=== PATIENT | male | born 1975 ===

== ENCOUNTER 2020-02-08 13:09 | Inpatient (IN) | payer SELFPAY ==
[~2020-02-08] VITALS: Ht 165 cm; Wt 117.0 kg
[2020-02-08] VITALS (10 sets, daily range): BP systolic 104–164; BP diastolic 56–109
--- NOTE | 2020-02-08 13:12 | NUR ---
Patient placed on oxygen at 2 LPM via Nasal cannula. oxygen saturation level rises from 88% to 94%. Patient's respiratory rate is 30.
[2020-02-08] MEDS ORDERED: KETOROLAC 30 MG/ML VIAL IVP STA (13:31)
[2020-02-08] MEDS ORDERED: LACTATED RINGERS 1,000 ML IV STA (13:31)
[2020-02-08] MEDS ORDERED: FAMOTIDINE 20MG/2ML IV (PEPCID) IV STA (13:31)
[2020-02-08] MEDS ORDERED: ACETAMINOPHEN 500 MG TAB (TYLENOL) PO PRN ×2 (13:45→15:45)
[2020-02-08] MEDS ORDERED: ONDANSETRON 4 MG/2 ML (SDV) Z0FRAN IVP ONE (13:45)
[2020-02-08 13:49] LABS: BILIRUBIN,URINE NEGATIVE (NEGATIVE); CLARITY,URINE SL CLOUDY; COLOR,URINE YELLOW; GLUCOSE, URINE (UA) NEGATIVE (NEGATIVE); KETONES,URINE NEGATIVE (NEGATIVE); LEUKOCYTE ESTERASE ,URINE NEGATIVE (NEGATIVE); NITRITE,URINE NEGATIVE (NEGATIVE); PH,URINE 7.5 (5-9); PROTEIN,URINE 1+ (NEGATIVE)
[2020-02-08] MEDS ORDERED: DEXAMETHASONE 4 MG TAB (DECADRON) PO STA (13:49)
--- NOTE | 2020-02-08 13:49 | ED General ---
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 His was just seen here and she is known COVID positive since 31 January. He has not had COVID-19 testing. He had gone to the clinic today to get tested because his is sick and they sent him here. There he was noted to have O2 saturations in the 80s. Patient did not know that that was occurring. He believes that his asthma is activated. Aside from the breathing problems and cough, patient reports fever and mild aching stomach. Denies nausea, vomiting or diarrhea. States he is eating and drinking okay. He lives and works in [facility]. Further discussion with the patient reveals that he was actually sent home from work on 31 January (the same day that his was diagnosed as positive for COVID- 19) and told not to return until he was better. It would appear that he has not felt well for at least a week. Timing/Duration: 1 Hour, 1 Week Severity: Moderate Associated Systoms: Cough, Fever/Chills, Malaise; No Nausea/Vomiting; Shortness of Air Allergies and Home Medications Allergies Coded Allergies: No Known Drug Allergies (Unverified , 02/08/20) Patient Home Medication List Home Medication List Reviewed: Yes Review of Systems Review of Systems Constitutional: see HPI EENTM: nose congestion; No throat pain Respiratory: cough, short of breath Cardiovascular: No chest pain, No edema Gastrointestinal: abdominal pain; No diarrhea; nausea; No vomiting Genitourinary: no symptoms reported Musculoskeletal: No back pain, No neck pain Skin: no symptoms reported All Other Systems Reviewed Negative Unless Noted: Yes Past Njurhac-Ssclnf-Uvfppw Hx Past Med/Social Hx: Reviewed Nursing Past Med/Soc Hx Patient Social History Alcohol Use: Denies Use Recreational Drug Use: No Smoking Status: Never a Smoker Past Medical History Surgeries: Yes Orthopedic Respiratory: Yes Asthma Cardiac: Yes High Cholesterol, Hypertension Neurological: No Genitourinary: No Musculoskeletal: Yes Gout Endocrine: No Psychosocial: No Family Medical History Reviewed Nursing Family Hx No Pertinent Family Hx Physical Exam-Suspected Sepsis Physical Exam Vital Signs Vital Signs - First Documented 02/08/20 16:07 FiO2 28 Capillary Refill : Height, Weight, BMI Height: '" Weight: lbs. oz. kg; BMI Method: General Appearance: No Apparent Distress, WD/WN HEENT: PERRL/EOMI, Pharyngeal Erythema Neck: Non Tender, Supple Respiratory: No Respiratory Distress, Crackles (Lateral aspect bilaterally); No Wheezing Cardiovascular: Regular Rate, Rhythm, No Murmur Gastrointestinal: Non Tender, Soft Back: Normal Inspection, No Vertebral Tenderness Extremity: Normal Range of Motion, Non Tender Neurologic/Psychiatric: Alert, Oriented x3 Skin: normal color, warm/dry Focused Exam Lactate Level 02/08/20 13:48: Lactic Acid Level 1.95 Lactic Acid Level Laboratory Tests Test 02/08/20 13:48 Lactic Acid Level 1.95 MMOL/L (0.50-2.00) Progress/Results/Core Measures Suspected Sepsis SIRS Temperature: Pulse: Respiratory Rate: Laboratory Tests 02/08/20 13:20: White Blood Count 9.8 Blood Pressure / Mean: 02/08/20 13:48: Lactic Acid Level 1.95 Laboratory Tests 02/08/20 13:20: Creatinine 0.76, INR Comment 1.0, Platelet Count 331, Total Bilirubin 0.3 Results/Orders Lab Results Laboratory Tests Test 02/08/20 13:15 02/08/20 13:20 02/08/20 13:48 Range/Units Urine Color YELLOW Urine Clarity SL CLOUDY Urine pH 7.5 5-9 Urine Specific [place] 1.015 L 1.016-1.022 Urine Protein 1+ H NEGATIVE Urine Glucose (UA) NEGATIVE NEGATIVE Urine Ketones NEGATIVE NEGATIVE Urine Nitrite NEGATIVE NEGATIVE Urine Bilirubin NEGATIVE NEGATIVE Urine Urobilinogen 1.0 < = 1.0 MG/DL Urine Leukocyte Esterase NEGATIVE NEGATIVE Urine RBC (Auto) TRACE-L NEGATIVE Urine RBC 2-5 H /HPF Urine WBC NONE /HPF Urine Squamous Epithelial Cells RARE /HPF Urine Crystals NONE /LPF Urine Bacteria NEGATIVE /HPF Urine Casts NONE /LPF Urine Mucus SMALL H /LPF Urine Culture Indicated CULTURE PENDING White Blood Count 9.8 4.3-11.0 10^3/uL Red Blood Count 4.98 4.35-5.85 10^6/uL Hemoglobin 13.9 13.3-17.7 G/DL Hematocrit 42 40-54 % Mean Corpuscular Volume 84 80-99 FL Mean Corpuscular Hemoglobin 28 25-34 PG Mean Corpuscular Hemoglobin Concent 33 32-36 G/DL Red Cell Distribution Width 14.6 H 10.0-14.5 % Platelet Count 331 130-400 10^3/uL Mean Platelet Volume 9.3 7.4-10.4 FL Neutrophils (%) (Auto) 84 H 42-75 % Lymphocytes (%) (Auto) 9 L 12-44 % Monocytes (%) (Auto) 7 0-12 % Eosinophils (%) (Auto) 0 0-10 % Basophils (%) (Auto) 0 0-10 % Neutrophils # (Auto) 8.2 H 1.8-7.8 X 10^3 Lymphocytes # (Auto) 0.9 L 1.0-4.0 X 10^3 Monocytes # (Auto) 0.6 0.0-1.0 X 10^3 Eosinophils # (Auto) 0.0 0.0-0.3 10^3/uL Basophils # (Auto) 0.0 0.0-0.1 10^3/uL Erythrocyte Sedimentation Rate 14 0-15 MM/HR Prothrombin Time 13.1 12.2-14.7 SEC INR Comment 1.0 0.8-1.4 Activated Partial Thromboplast Time 39 H 24-35 SEC D-Dimer 1.19 H 0.00-0.49 UG/ML Sodium Level 138 135-145 MMOL/L Potassium Level 3.7 3.6-5.0 MMOL/L Chloride Level 101 98-107 MMOL/L Carbon Dioxide Level 23 21-32 MMOL/L Anion Gap 14 5-14 MMOL/L Blood Urea Nitrogen 11 7-18 MG/DL Creatinine 0.76 0.60-1.30 MG/DL Estimat Glomerular Filtration Rate > 60 BUN/Creatinine Ratio 14 Glucose Level 129 H 70-105 MG/DL Calcium Level 8.5 8.5-10.1 MG/DL Corrected Calcium 8.8 8.5-10.1 MG/DL Total Bilirubin 0.3 0.1-1.0 MG/DL Aspartate Amino Transf (AST/SGOT) 42 H 5-34 U/L Alanine Aminotransferase (ALT/SGPT) 28 0-55 U/L Alkaline Phosphatase 98 40-136 U/L Lactate Dehydrogenase 600 H 125-220 U/L C-Reactive Protein High Sensitivity 21.22 H 0.00-0.50 MG/DL Total Protein 7.5 6.4-8.2 GM/DL Albumin 3.6 3.2-4.5 GM/DL Procalcitonin 0.06 <0.10 NG/ML Lactic Acid Level 1.95 0.50-2.00 MMOL/L My Orders Orders - WOJCIECH SMITH MD Cbc With Automated Diff (02/08/20 13:31) Comprehensive Metabolic Panel (02/08/20 13:31) Blood Culture (02/08/20 13:31) Sputum Culture (02/08/20 13:31) Urinalysis (02/08/20 13:31) Urine Culture (02/08/20 13:31) Protime With Inr (02/08/20 13:31) Partial Thromboplastin Time (02/08/20 13:31) Chest 1 View, Ap/Pa Only (02/08/20 13:31) Acetaminophen Tablet (Tylenol Tablet) (02/08/20 13:45) Ed Iv/Invasive Line Start (02/08/20 13:31) Vital Signs Adult Sepsis Patie Q15M (02/08/20 13:31) O2 (02/08/20 13:31) Remove Rings In Anticipation O (02/08/20 13:31) Lactic Acid Analyzer (02/08/20 13:31) Fibrin Degradation Products (02/08/20 13:31) Procalcitonin (Pct) (02/08/20 13:31) Hs C Reactive Protein (02/08/20 13:31) Erythrocyte Sedimentation Rate (02/08/20 13:31) LDH (02/08/20 13:31) Coronavirus Sars-Cov-2 So 2018 (02/08/20 13:31) Lactated Ringers (Lr 1000 Ml Iv Solution (02/08/20 13:31) Famotidine Injection (Pepcid Injection) (02/08/20 13:31) Ondansetron Injection (Zofran Injectio (02/08/20 13:45) Ketorolac Injection (Toradol Injection) (02/08/20 13:31) Dexamethasone Tablet (Decadron Tablet) (02/08/20 13:49) Medications Given in ED Current Medications Medications Dose Ordered Sig/Len Route Start Time Stop Time Status Last Admin Dose Admin Acetaminophen 1,000 mg ONCE PRN PO 02/08/20 13:45 02/08/20 13:59 DC 02/08/20 13:45 1,000 MG Ondansetron HCl 4 mg ONCE ONCE IVP 02/08/20 13:45 02/08/20 13:46 DC 02/08/20 13:50 4 MG Vital Signs/I&O 02/08/20 02/08/20 02/08/20 02/08/20 13:12 13:12 13:12 13:45 Temp 38.9 38.9 Pulse 118 Resp 30 B/P (MAP) 159/93 (115) Pulse Ox 88 94 O2 Delivery Nasal Cannula Room Air Nasal Cannula O2 Flow Rate 2.00 3.00 02/08/20 02/08/20 02/08/20 02/08/20 15:08 15:58 16:07 16:15 Temp 37.4 38.9 Pulse 107 97 118 98 Resp 30 31 B/P (MAP) 164/100 (121) 149/79 134/99 (111) Pulse Ox 93 96 88 92 O2 Delivery Nasal Cannula Nasal Cannula Nasal Cannula O2 Flow Rate 2.00 3.00 2.00 FiO2 28 02/08/20 02/08/20 02/08/20 16:18 16:54 17:00 Pulse 98 97 Resp 16 B/P (MAP) 151/103 (119) Pulse Ox 92 O2 Delivery Nasal Cannula Nasal Cannula O2 Flow Rate 3.00 2.00 Capillary Refill : Progress Note : Progress Note Seen and evaluated. IV, labs, chest x-ray, blood cultures, lactic acid, COVID-19 swab, LR 1 L bolus, Tylenol 1 g by mouth for fever, Zofran 4 mg IV and Pepcid 20 mg IV for stomach upset ordered. I do believe the patient will be positive for COVID-19 given his presenting symptoms and history. We will also give Decadron 6 mg by mouth given the concern for acute phase of COVID infection with respiratory distress. Patient initially in the 80s on room air and up to 93% on 3 O2 L via nasal cannula. Evaluation and history done with bilingual speech language pathologist on phone. [id number]: Findings consistent with COVID-19 infections. We will treat as such. I discussed the case with Dr. Rodríguez. Given the severity of the x-ray, patient will be admitted to the ICU. She accepts patient for admission, inpatient status. I did discuss with the patient regarding remdesivir treatment for emergent treatment of COVID-19. Risks and benefits discussed via the dry cell tester and patient verbally consents to treatment with the antiviral agent. Patient is still mildly dyspneic with O2 sats greater than 92% on 4 L. Patient to be transferred to the ICU. Diagnostic Imaging Diagonstic Imaging: Xray Plain Films/CT/US/NM/MRI: chest Comments Bilateral patchy infiltrates concerning for COVID-19 [facility]. [place], [place] NAME: KELLI ESPAÑA [facility] REC#: [id number] PT STATUS: REG ER : 1975 PHYSICIAN: WOJCIECH SMITH MD ADMIT DATE: 02/08/20/ER Draft Date of Exam:02/08/20 CHEST 1 VIEW, AP/PA ONLY INDICATION: COVID symptoms. TIME OF EXAM: 02:52 p.m. COMPARISON: No prior studies are available for comparison. FINDINGS: The heart size appears increased, however this could be owing to portable technique. There are airspace infiltrates throughout both lungs consistent with pneumonia. This is noted in the upper and lower lung joy. No effusion or pneumothorax is seen. IMPRESSION: Diffuse bilateral airspace pulmonary infiltrates consistent with pneumonia. Dictated on workstation # [id number] Dict: 02/08/20 1505 Trans: 02/08/20 1508 [facility] [id number] Interpreted by: IVELISSE WHITESIDE MD Electronically signed by: Reviewed: Reviewed by Me Departure Communication (Admissions) Time/Spoke to Admitting Phy: 14:59 Impression Primary Impression: Bilateral pneumonia Qualified Codes: J18.9 - Pneumonia, unspecified organism Additional Impression: COVID-19 evaluation Disposition: ADMITTED INPATIENT Condition: Critical Admissions Decision to Admit Reason: Admit from ER (General) Decision to Admit/Date: Feb 08, 2020 Time/Decision to Admit Time: 14:59 WOJCIECH SMITH MD Feb 08, 2020 13:48
[2020-02-08 13:52] LABS: BASOPHILS % (AUTO) 0 % (0-10); EOSINOPHILS % (AUTO) 0 % (0-10); HEMATOCRIT 42 % (40-54); HEMOGLOBIN 13.9 G/DL (13.3-17.7); LYMPHOCYTES # (AUTO) 0.9 X 10^3 (1.0-4.0); LYMPHOCYTES % (AUTO) 9 % (12-44); MEAN CORPUSCULAR HEMOGLOBIN 28 PG (25-34); MEAN CORPUSCULAR HGB CONC 33 G/DL (32-36); MEAN CORPUSCULAR VOLUME 84 FL (80-99); MEAN PLATELET VOLUME 9.3 FL (7.4-10.4); MONOCYTES # (AUTO) 0.6 X 10^3 (0.0-1.0); MONOCYTES % (AUTO) 7 % (0-12); NEUTROPHILS # (AUTO) 8.2 X 10^3 (1.8-7.8); NEUTROPHILS % (AUTO) 84 % (42-75); PLATELET COUNT 331 10^3/uL (130-400); RED CELL DISTRIBUTION WIDTH 14.6 % (10.0-14.5); WHITE BLOOD COUNT 9.8 10^3/uL (4.3-11.0)
[2020-02-08 14:03] LABS: BACTERIA,URINE NEGATIVE /HPF; SQUAMOUS EPITHELIAL CELL,UR RARE /HPF
[2020-02-08 14:04] LABS: ALBUMIN 3.6 GM/DL (3.2-4.5); CHLORIDE 101 MMOL/L (98-107); POTASSIUM 3.7 MMOL/L (3.6-5.0); SODIUM 138 MMOL/L (135-145)
[2020-02-08 14:05] LABS: CALCIUM 8.5 MG/DL (8.5-10.1)
[2020-02-08 14:06] LABS: GLUCOSE 129 MG/DL (70-105); TOTAL PROTEIN 7.5 GM/DL (6.4-8.2)
[2020-02-08 14:08] LABS: BILIRUBIN,TOTAL 0.3 MG/DL (0.1-1.0); CARBON DIOXIDE 23 MMOL/L (21-32)
[2020-02-08 14:10] LABS: ALKALINE PHOSPHATASE 98 U/L (40-136); CREATININE SERUM 0.76 MG/DL (0.60-1.30); GFR ESTIMATED > 60
[2020-02-08 14:11] LABS: BUN/CREATININE RATIO 14
[2020-02-08 14:13] LABS: ALANINE AMINOTRANSFERASE 28 U/L (0-55)
[2020-02-08 14:16] LABS: ERYTHROCYTE SEDIMENTATION RATE 14 MM/HR (0-15)
[2020-02-08 14:47] LABS: FIBRIN DEGRADATION PRODUCTS 1.19 UG/ML (0.00-0.49); PROTHROMBIN TIME PATIENT 13.1 SEC (12.2-14.7)
--- NOTE | 2020-02-08 15:08 | Diagnostic Imaging Report ---
INDICATION: COVID symptoms. TIME OF EXAM: 02:52 p.m. COMPARISON: No prior studies are available for comparison. FINDINGS: The heart size appears increased, however this could be owing to portable technique. There are airspace infiltrates throughout both lungs consistent with pneumonia. This is noted in the upper and lower lung joy. No effusion or pneumothorax is seen. IMPRESSION: Diffuse bilateral airspace pulmonary infiltrates consistent with pneumonia. Dictated by: Dictated on workstation # [id number]
[2020-02-08] MEDS ORDERED: ENOXAPARIN 40 MG/0.4 ML (LOVENOX) SYR SC SCH (15:30)
[2020-02-08] MEDS ORDERED: REMDESIVIR INJ (NON-FORMULARY) 200 MG in NS (IVPB) 210 ML IV NR (15:30)
[2020-02-08] MEDS ORDERED: CATHETER FLUSH 10 ML SYR IV PRN (15:45)
[2020-02-08] MEDS ORDERED: ONDANSETRON 4 MG/2 ML (SDV) Z0FRAN IV PRN (15:45)
--- NOTE | 2020-02-08 17:07 | NUR ---
THIS NURSE NOTIFIED DR ADAM PT FLAGGED SEPSIS DUE TO RR 26-30 AND HR 100. NO NEW ORDERS AT THIS TIME. WILL CONTINUE TO MONITOR.
--- OUTSIDE RECORDS SUMMARY | 2020-02-08 17:49 | XMS REPORT | Continuity of Care Document ---
Demographics Preferred Language Unknown Marital Status Unknown Rastafarian Affiliation Unknown Race Unknown Ethnic Group Unknown Author Organization Unknown Address Unknown Phone Unavailable Allergies There is no data. Medications There is no data. Problems There is no data. Procedures There is no data. Results Test Result Range Complete urinalysis with reflex to cultu re - 02/08/20 13:15 Urine color determination YELLOW NRG Urine clarity determination SL CLOUDY N RG Urine pH measurement by test strip 7.5 5-9 Specific gravity of urine by test strip 1.015 1.016-1.022 Urine protein assay by test strip, semi-quantitative 1+ NEGATIVE Urine glucose detection by automated test strip NE GATIVE NEGATIVE Erythrocytes detection in urine sediment by light micr oscopy TRACE-L NEGATIVE Urine ketones detection by automated test strip NE GATIVE NEGATIVE Urine nitrite detection by test strip NEGATIVE NEGATIVE Urine total bilirubin detection by test strip NEGA TIVE NEGATIVE Urine urobilinogen measurement by automated test strip (mass/volume) 1.0 mg/dL < = 1.0 Urine leukocyte esterase detection by dipstick NEG ATIVE NEGATIVE Automated urine sediment erythrocyte cou nt by microscopy (number/high power field) [HPF] NRG Automated urine sediment leukocyte count by microscopy (number/high power field) NONE NRG Bacteria detection in urine sediment by light microsco py NEGATIVE NRG Squamous epithelial cells detection in u rine sediment by light microscopy RARE NRG Crystals detection in urine sediment by light microsco py NONE NRG Casts detection in urine sediment by light microscopy NONE NRG Mucus detection in urine sediment by light microscopy SMALL NRG Complete urinalysis with reflex to culture CULTURE PENDING NRG Complete blood count (CBC) with automate d white blood cell (WBC) differential - 02/08/20 13:20 Blood leukocytes automated count (number/volume) 9.8 10*3/uL 4.3-11.0 Blood erythrocytes automated count (number/volume) 4.98 10*6/uL 4.35-5.85 Venous blood hemoglobin measurement (mass/volume) 13.9 g/dL 13.3-17.7 Blood hematocrit (volume fraction) 42 % 40-54 Automated erythrocyte mean corpuscular volume 84 [ foz_us] 80-99 Automated erythrocyte mean corpuscular h emoglobin (mass per erythrocyte) 28 pg 25-34 Automated erythrocyte mean corpuscular h emoglobin concentration measurement (mass/volume) 33 g/dL 32-36 Automated erythrocyte distribution width ratio 14. 6 % 10.0- 14.5 Automated blood platelet count (count/volume) 331 10*3/uL 130-400 Automated blood platelet mean volume measurement 9.3 [foz_us] 7.4-10.4 Automated blood neutrophils/100 leukocytes 84 % 42-75 Automated blood lymphocytes/100 leukocytes 9 % 12-44 Blood monocytes/100 leukocytes 7 % 0-12 Automated blood eosinophils/100 leukocytes 0 % 0-10 Automated blood basophils/100 leukocytes 0 % 0-10 Blood neutrophils automated count (number/volume) 8.2 10*3 1.8-7.8 Blood lymphocytes automated count (number/volume) 0.9 10*3 1.0-4.0 Blood monocytes automated count (number/volume) 0. 6 10*3 0.0-1.0 Automated eosinophil count 0.0 10*3/uL 0 .0-0.3 Automated blood basophil count (count/volume) 0.0 10*3/uL 0.0-0.1 Comprehensive metabolic panel - 02/08/20 13:20 Serum or plasma sodium measurement (moles/volume) 138 mmol/L 135-145 Serum or plasma potassium measurement (moles/volume) 3.7 mmol/L 3.6-5.0 Serum or plasma chloride measurement (moles/volume) 101 mmol/L 98-107 Carbon dioxide 23 mmol/L 21-32 Serum or plasma anion gap determination (moles/volume) 14 mmol/L 5-14 Serum or plasma urea nitrogen measurement (mass/volume ) 11 mg/dL 7-18 Serum or plasma creatinine measurement (mass/volume) 0.76 mg/dL 0.60-1.30 Serum or plasma urea nitrogen/creatinine mass ratio 14 NRG Serum or plasma creatinine measurement w ith calculation of estimated glomerular filtration rate > NRG Serum or plasma glucose measurement (mass/volume) 129 mg/dL 70-105 Serum or plasma calcium measurement (mass/volume) 8.5 mg/dL 8.5-10.1 Serum or plasma total bilirubin measurement (mass/volu me) 0.3 mg/dL 0.1-1.0 Serum or plasma alkaline phosphatase juan surement (enzymatic activity/volume) 98 U/L 40-136 Serum or plasma aspartate aminotransfera se measurement (enzymatic activity/volume) 42 U/L 5-34 Serum or plasma alanine aminotransferase measurement (enzymatic activity/volume) 28 U/L 0-55 Serum or plasma protein measurement (mass/volume) 7.5 g/dL 6.4-8.2 Serum or plasma albumin measurement (mass/volume) 3.6 g/dL 3.2-4.5 CALCIUM CORRECTED 8.8 mg/dL 8.5-10.1 Serum ragweed IgE antibody assay - 02/07 13:20 Serum ragweed IgE antibody assay 600 U/L 125-220 Erythrocyte sedimentation rate by miguel a gren method - 02/08/20 13:20 Erythrocyte sedimentation rate by westergren method 14 mm 0- 15 PROCALCITONIN (PCT) - 02/08/20 13:20 PROCALCITONIN (PCT) 0.06 ng/mL <0.10 Serum or plasma C reactive protein measu rement (mass/volume) - 02/08/20 13:20 Serum or plasma C reactive protein measurement (mass/v olume) 21.22 mg/dL 0.00-0.50 PT panel in platelet poor plasma by coag ulation assay - 02/08/20 13:20 Prothrombin time (PT) in platelet poor plasma by coagu lation assay 13.1 s 12.2-14.7 INR in platelet poor plasma or blood by coagulation as say 1.0 0.8-1.4 Activated partial thromboplastin time (a PTT) in platelet poor plasma bycoagulation assay - 02/08/20 13:20 Activated partial thromboplastin time (a PTT) in platelet poor plasma bycoagulation assay 39 s 24-35 Fibrin D-dimer FEU measurement in platel et poor plasma (mass/volume) - 02/08/20 13:20 Fibrin D-dimer FEU measurement in platelet poor plasma (mass/volume) 1.19 ug/mL 0.00-0.49 Blood lactic acid measurement (moles/vol ume) - 02/08/20 13:48 Blood lactic acid measurement (moles/volume) 1.95 mmol/L 0.50-2.00 Encounters ACCT No. Visit Date/Time Discharge Status Pt. Type Provider Facility Loc./Unit Complaint [id number] 02/08/2020 13:54:00 Document Registration
[2020-02-08] MEDS: RT-ALBUTEROL INHALER HFA (VENTOLIN HFA) 18 GM IH SCH ×2 (18:59→22:38)
[2020-02-08] MEDS: ENOXAPARIN 40 MG/0.4 ML (LOVENOX) SYR SC SCH (19:21)
[2020-02-08] MEDS: DEXAMETHASONE 10 MG/ML (DECADRON) 1 ML VIAL IM SCH (19:38)
[2020-02-08] MEDS: CATHETER FLUSH 10 ML SYR IV SCH (21:09)
[2020-02-09] VITALS (24 sets, daily range): BP systolic 131–163; BP diastolic 60–103
[2020-02-09 01:09] LABS: BASOPHILS % (AUTO) 0 % (0-10); EOSINOPHILS % (AUTO) 0 % (0-10); HEMATOCRIT 39 % (40-54); HEMOGLOBIN 13.5 G/DL (13.3-17.7); LYMPHOCYTES # (AUTO) 0.6 X 10^3 (1.0-4.0); LYMPHOCYTES % (AUTO) 6 % (12-44); MEAN CORPUSCULAR HEMOGLOBIN 28 PG (25-34); MEAN CORPUSCULAR HGB CONC 34 G/DL (32-36); MEAN CORPUSCULAR VOLUME 83 FL (80-99); MEAN PLATELET VOLUME 9.2 FL (7.4-10.4); MONOCYTES # (AUTO) 0.3 X 10^3 (0.0-1.0); MONOCYTES % (AUTO) 4 % (0-12); NEUTROPHILS % (AUTO) 90 % (42-75); PLATELET COUNT 353 10^3/uL (130-400); RED CELL DISTRIBUTION WIDTH 14.6 % (10.0-14.5); WHITE BLOOD COUNT 8.9 10^3/uL (4.3-11.0)
[2020-02-09] MEDS: RT-ALBUTEROL INHALER HFA (VENTOLIN HFA) 18 GM IH SCH ×6 (01:10→23:06)
[2020-02-09 01:14] LABS: CHLORIDE 103 MMOL/L (98-107); POTASSIUM 3.6 MMOL/L (3.6-5.0); SODIUM 138 MMOL/L (135-145)
[2020-02-09 01:15] LABS: CALCIUM 8.3 MG/DL (8.5-10.1); GLUCOSE 159 MG/DL (70-105)
[2020-02-09 01:17] LABS: CARBON DIOXIDE 23 MMOL/L (21-32)
[2020-02-09 01:19] LABS: CREATININE SERUM 0.75 MG/DL (0.60-1.30); GFR ESTIMATED > 60; PHOSPHORUS 3.2 MG/DL (2.3-4.7)
[2020-02-09 01:20] LABS: BUN/CREATININE RATIO 20
[2020-02-09] MEDS: KCL 20 MEQ TAB (K-DUR) PO SCH (01:21)
[2020-02-09] MEDS: POTASSIUM CL 10MEQ/50ML IVPB 50 ML IV SCH (01:21)
[2020-02-09 01:22] LABS: MAGNESIUM 1.8 MG/DL (1.6-2.4)
[2020-02-09] MEDS: MAGNESIUM 1 GM/100 ML IVPB 100 ML IV SCH (01:23)
[2020-02-09] MEDS: ENOXAPARIN 40 MG/0.4 ML (LOVENOX) SYR SC SCH ×2 (03:31→16:37)
[2020-02-09] MEDS: CATHETER FLUSH 10 ML SYR IV SCH ×3 (04:42→21:52)
[2020-02-09] MEDS: DEXAMETHASONE 10 MG/ML (DECADRON) 1 ML VIAL IM SCH (08:12)
[2020-02-09] MEDS ORDERED: KCL 20 MEQ TAB (K-DUR) PO ONE ×2 (09:00→16:45)
--- NOTE | 2020-02-09 10:58 | History & Physical-Hospitalist ---
History of Present Illness HPI/Chief Complaint Pt is a 44yoCM with a PMH of asthma, HTN, HLD who presented to the ER due to shortness of breath and hypoxia. He was seen at [facility] clinic yesterday for SOB and was found to have oxygen saturation of 85% on room air and was referred to the ER. He reports that his symptoms started on 01/31 and he was sent home for work for this. His was diagnosed with COVID19 on the same day. He was found to have diffuse bilateral pneumonia and new oxygen requirement and was admitted to the ICU for hypoxic respiratory failure. This morning reports he is feeling much better but he did escalate to Vapotherm overnight. He denies any cough or SOB at this time. Source: patient Exam Limitations: language barrier (language line used) Date Seen 02/09/20 Time Seen by a Provider: 10:53 Attending Physician Crystal Rodríguez MD PCP No,Local Physician Referring Physician Date of Admission Feb 08, 2020 at 14:01 Home Medications & Allergies Home Medications Reviewed patient Home Medication Reconciliation performed by pharmacy medication reconciliations semiconductor technician and/or nursing. Patients Allergies have been reviewed. Allergies Allergies Coded Allergies No Known Drug Allergies (Unverified02/08/20) Past Vwkxgam-Ibekyr-Qtwuul Hx Past Med/Social Hx: Reviewed Nursing Past Med/Soc Hx Patient Social History Marrital Status: Alcohol Use: Denies Use Recreational Drug Use: No Smoking Status: Never a Smoker 2nd Hand Smoke Exposure: No Recent Foreign Travel: No Contact w/other who traveled: No Recent Hopitalizations: No Recent Infectious Disease Expo: Yes Seasonal Allergies Seasonal Allergies: No Past Medical History Surgeries: Orthopedic Cardiac: High Cholesterol, Hypertension Musculoskeletal: Gout Family History Reviewed Nursing Family Hx No Pertinent Family Hx Review of Systems Constitutional: fever EENTM: no symptoms reported Respiratory: cough, short of breath Cardiovascular: No chest pain, No palpitations Gastrointestinal: no symptoms reported Genitourinary: no symptoms reported Musculoskeletal: no symptoms reported Skin: no symptoms reported Psychiatric/Neurological: No Symptoms Reported Physical Exam Physical Exam Vital Signs Vital Signs - First Documented 02/08/20 16:07 FiO2 28 Capillary Refill : Less Than 3 Seconds Height, Weight, BMI Height: '" Weight: lbs. oz. kg; 41.00 BMI Method: General Appearance: No Apparent Distress, WD/WN, Obese HEENT: PERRL/EOMI, Moist Mucous Membranes; No Scleral Icterus (L), No Scleral Icterus (R) Neck: Normal Inspection, Supple Respiratory: No Accessory Muscle Use, Decreased Breath Sounds, Other (on Vapotherm) Cardiovascular: Regular Rate, Rhythm, No Murmur Gastrointestinal: Normal Bowel Sounds, Non Tender, Soft Neurologic/Psychiatric: Alert, Oriented x3, Normal Mood/Affect Results Results/Procedures Labs Laboratory Tests 02/08/20 13:20 02/09/20 00:52 Patient resulted labs reviewed. Imaging: Reviewed Imaging Films, Reviewed Imaging Report Imaging [facility]. [place], [place] NAME: KELLI ESPAÑA [facility] REC#: [id number] PT STATUS: ADM IN : 1975 PHYSICIAN: WOJCIECH SMITH MD ADMIT DATE: 02/08/20/ICU Signed Date of Exam:02/08/20 CHEST 1 VIEW, AP/PA ONLY INDICATION: COVID symptoms. TIME OF EXAM: 02:52 p.m. COMPARISON: No prior studies are available for comparison. FINDINGS: The heart size appears increased, however this could be owing to portable technique. There are airspace infiltrates throughout both lungs consistent with pneumonia. This is noted in the upper and lower lung joy. No effusion or pneumothorax is seen. IMPRESSION: Diffuse bilateral airspace pulmonary infiltrates consistent with pneumonia. Dictated by: Dictated on workstation # [id number] Dict: 02/08/20 1505 Trans: 02/08/20 1533 [facility] [id number] Interpreted by: IVELISSE WHITESIDE MD Electronically signed by: IVELISSE WHITESIDE MD 02/08/20 1533 Assessment/Plan Admission Diagnosis Acute Hypoxic Respiratory Failure Admission Status: Inpatient Order (span 2 midnights) Reason for Inpatient Admission: see below Assessment and Plan Acute Hypoxic Respiratory Failure COVID19 Bilateral Viral Pneumonia COVID + Continue Decadron orally and Remdesivir TeleICU consulted, appreciate recs Vapotherm, wean oxygen as able Prone as able Hyperglycemia SSI Likely due to Decadron HTN BP mildly elevated, trend DVT ppx: Lovenox Diagnosis/Problems Diagnosis/Problems (1) Essential (primary) hypertension Status: Chronic (2) Hyperglycemia Status: Acute (3) Prophylactic measure Status: Acute (4) Acute respiratory failure Status: Acute Qualifiers: Respiratory failure complication: hypoxia Qualified Codes: J96.01 - Acute respiratory failure with hypoxia (5) Coronavirus infection Status: Acute (6) Bilateral pneumonia Status: Acute Qualifiers: Pneumonia type: due to unspecified organism Lung location: unspecified part of lung Qualified Codes: J18.9 - Pneumonia, unspecified organism (7) Pneumonia due to human coronavirus Status: Acute Clinical Quality Measures DVT/VTE Risk/Contraindication: Risk Factor Score Per Nursin RFS Level Per Nursing on Admit: 4+=Very High CRYSTAL RODRÍGUEZ MD Feb 09, 2020 10:58
[2020-02-09 12:27] LABS: ALANINE AMINOTRANSFERASE 34 U/L (0-55); ALBUMIN 3.3 GM/DL (3.2-4.5); ALKALINE PHOSPHATASE 91 U/L (40-136); BILIRUBIN,DIRECT 0.2 MG/DL (0.0-0.3); BILIRUBIN,INDIRECT 0.1 MG/DL; BILIRUBIN,TOTAL 0.3 MG/DL (0.1-1.0); BUN/CREATININE RATIO 22; CALCIUM 8.6 MG/DL (8.5-10.1); CARBON DIOXIDE 25 MMOL/L (21-32); CHLORIDE 104 MMOL/L (98-107); CREATININE SERUM 0.77 MG/DL (0.60-1.30); GFR ESTIMATED > 60; GLUCOSE 220 MG/DL (70-105); POTASSIUM 3.5 MMOL/L (3.6-5.0); SODIUM 139 MMOL/L (135-145); TOTAL PROTEIN 7.2 GM/DL (6.4-8.2)
[2020-02-09] MEDS ORDERED: ATOR10TA66 PO (15:54)
[2020-02-09] MEDS ORDERED: CYCL10TA9 PO (15:54)
[2020-02-09] MEDS ORDERED: LISI1TAB25 PO (15:54)
[2020-02-09] MEDS ORDERED: ASPI-789 PO (15:54)
--- NOTE | 2020-02-09 16:02 | NUR ---
SPOKE WITH THE PATIENTS DAUGHTER (RODRÍGUEZ) AND CALLED [facility] TO COM[facility]TE [facility] REC. LISINOPRIL/HCTZ 20/12.5MG WAS LAST FILLED ON 09-22-2019 #90 (THRU THE REPOSITORY) AND 08-14-2019 #90 (THRU [facility]) ATORVASTATIN 10MG LAST FILLED 10-14-2019 #90 (THRU THE PHARMACY) AND 09-22-2019 #90 (THRU THE REPOSITORY) FLEXERIL 10MG LAST FILLED 10-23-2019 #60 OTC MEDS: EXCEDRIN
[2020-02-09] MEDS: REMDESIVIR INJ (NON-FORMULARY) 100 MG in NS (IVPB) 230 ML IV SCH (16:34)
[2020-02-10] VITALS (24 sets, daily range): BP systolic 120–172; BP diastolic 62–108
[2020-02-10] MEDS: ENOXAPARIN 40 MG/0.4 ML (LOVENOX) SYR SC SCH ×2 (02:20→16:13)
[2020-02-10 02:42] LABS: BASOPHILS % (AUTO) 0 % (0-10); EOSINOPHILS % (AUTO) 0 % (0-10); HEMATOCRIT 40 % (40-54); HEMOGLOBIN 13.7 G/DL (13.3-17.7); LYMPHOCYTES % (AUTO) 5 % (12-44); MEAN CORPUSCULAR HEMOGLOBIN 29 PG (25-34); MEAN CORPUSCULAR HGB CONC 34 G/DL (32-36); MEAN CORPUSCULAR VOLUME 83 FL (80-99); MEAN PLATELET VOLUME 9.5 FL (7.4-10.4); MONOCYTES % (AUTO) 5 % (0-12); NEUTROPHILS % (AUTO) 89 % (42-75); PLATELET COUNT 432 10^3/uL (130-400); RED CELL DISTRIBUTION WIDTH 14.6 % (10.0-14.5)
[2020-02-10] MEDS: RT-ALBUTEROL INHALER HFA (VENTOLIN HFA) 18 GM IH SCH ×6 (02:46→22:00)
[2020-02-10 02:48] LABS: ALBUMIN 3.3 GM/DL (3.2-4.5); CHLORIDE 106 MMOL/L (98-107); POTASSIUM 4.2 MMOL/L (3.6-5.0); SODIUM 141 MMOL/L (135-145)
[2020-02-10 02:50] LABS: CALCIUM 8.6 MG/DL (8.5-10.1)
[2020-02-10 02:51] LABS: GLUCOSE 163 MG/DL (70-105); TOTAL PROTEIN 7.2 GM/DL (6.4-8.2)
[2020-02-10 02:52] LABS: CARBON DIOXIDE 24 MMOL/L (21-32)
[2020-02-10 02:53] LABS: BILIRUBIN,TOTAL 0.3 MG/DL (0.1-1.0)
[2020-02-10 02:54] LABS: ALKALINE PHOSPHATASE 95 U/L (40-136); PHOSPHORUS 3.7 MG/DL (2.3-4.7)
[2020-02-10 02:55] LABS: CREATININE SERUM 0.71 MG/DL (0.60-1.30); GFR ESTIMATED > 60
[2020-02-10 02:56] LABS: BUN/CREATININE RATIO 25
[2020-02-10 02:57] LABS: ALANINE AMINOTRANSFERASE 35 U/L (0-55); MAGNESIUM 2.1 MG/DL (1.6-2.4)
[2020-02-10] MEDS: POTASSIUM CL 10MEQ/50ML IVPB 50 ML IV SCH (03:05)
[2020-02-10] MEDS: KCL 20 MEQ TAB (K-DUR) PO SCH (03:05)
[2020-02-10] MEDS: MAGNESIUM 1 GM/100 ML IVPB 100 ML IV SCH (03:05)
[2020-02-10 03:55] LABS: NEUTROPHILS % (MANUAL) 84 %
[2020-02-10 03:56] LABS: BAND NEUTROPHILS 2 %; BASOPHILS % (MANUAL) 1 %; LYMPHOCYTES % (MANUAL) 6 %; METAMYELOCYTES % 1 %; MONOCYTES % (MANUAL) 6 %; RBC MORPH NORMAL
[2020-02-10] MEDS: CATHETER FLUSH 10 ML SYR IV SCH ×3 (05:42→23:33)
[2020-02-10] MEDS: lisINopril 20 MG (PRINIVIL) TABLET PO SCH (08:01)
[2020-02-10] MEDS: DEXAMETHASONE 10 MG/ML (DECADRON) 1 ML VIAL IM SCH (08:01)
[2020-02-10] MEDS: HYDROCHLOROTHIAZIDE 12.5 MG (HCTZ) CAP PO SCH (08:07)
--- NOTE | 2020-02-10 10:28 | Progress Note - Hospitalist ---
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 He was seen at [facility] clinic yesterday for SOB and was found to have oxygen saturation of 85% on room air and was referred to the ER. He reports that his symptoms started on 01/31 and he was sent home for work for this. His was diagnosed with COVID19 on the same day. He was found to have diffuse bilateral pneumonia and new oxygen requirement and was admitted to the ICU for hypoxic respiratory failure. This morning reports he is feeling much better but he did escalate to Vapotherm overnight. He denies any cough or SOB at this time. Subjective/Events-last exam Pt reports doing much better today. Breathing improved. Still on Vapotherm but feeling better. Focused Exam Lactate Level 02/08/20 13:48: Lactic Acid Level 1.95 Objective Exam Vital Signs Vital Signs Date Time Temp Pulse Resp B/P (MAP) Pulse Ox O2 Delivery O2 Flow Rate FiO2 02/10/20 08:04 36.2 02/10/20 08:00 Vapotherm 35.00 65 02/10/20 08:00 95 27 137/91 (106) 90 Capillary Refill : Less Than 3 Seconds General Appearance: No Apparent Distress, WD/WN Respiratory: Crackles (left base), Other (on Vapotherm) Cardiovascular: Regular Rate, Rhythm, No Murmur Gastrointestinal: Normal Bowel Sounds, Soft Neurologic/Psychiatric: Alert, Oriented x3 Results/Procedures Lab Laboratory Tests 02/09/20 11:50 02/10/20 02:15 Patient resulted labs reviewed. Imaging: Reviewed Imaging Films, Reviewed Imaging Report Assessment/Plan Assessment and Plan Assess & Plan/Chief Complaint Acute Hypoxic Respiratory Failure COVID19 Bilateral Viral Pneumonia COVID + Continue Decadron orally and Remdesivir TeleICU consulted, appreciate recs Vapotherm, wean oxygen to keep sats >90 Prone as able Hyperglycemia SSI Likely due to Decadron Leukocytosis Likely due to decadron Remains afebrile and clinically improving HTN BP mildly elevated, trend DVT ppx: Lovenox Diagnosis/Problems Diagnosis/Problems (1) Essential (primary) hypertension Status: Chronic (2) Hyperglycemia Status: Acute (3) Prophylactic measure Status: Acute (4) Acute respiratory failure Status: Acute Qualifiers: Respiratory failure complication: hypoxia Qualified Codes: J96.01 - Acute respiratory failure with hypoxia (5) Coronavirus infection Status: Acute (6) Bilateral pneumonia Status: Acute Qualifiers: Pneumonia type: due to unspecified organism Lung location: unspecified part of lung Qualified Codes: J18.9 - Pneumonia, unspecified organism (7) Pneumonia due to human coronavirus Status: Acute Clinical Quality Measures DVT/VTE Risk/Contraindication: Risk Factor Score Per Nursin RFS Level Per Nursing on Admit: 4+=Very High CRYSTAL ADAM MD Feb 10, 2020 10:28
[2020-02-10] MEDS: REMDESIVIR INJ (NON-FORMULARY) 100 MG in NS (IVPB) 230 ML IV SCH (16:14)
[2020-02-11] VITALS (23 sets, daily range): BP systolic 133–174; BP diastolic 80–119
[2020-02-11] MEDS: RT-ALBUTEROL INHALER HFA (VENTOLIN HFA) 18 GM IH SCH ×6 (02:18→22:09)
[2020-02-11] MEDS: ENOXAPARIN 40 MG/0.4 ML (LOVENOX) SYR SC SCH ×2 (02:42→15:58)
[2020-02-11 03:00] LABS: BASOPHILS % (AUTO) 0 % (0-10); EOSINOPHILS % (AUTO) 0 % (0-10); HEMATOCRIT 42 % (40-54); HEMOGLOBIN 13.9 G/DL (13.3-17.7); LYMPHOCYTES # (AUTO) 1.2 X 10^3 (1.0-4.0); LYMPHOCYTES % (AUTO) 5 % (12-44); MEAN CORPUSCULAR HEMOGLOBIN 28 PG (25-34); MEAN CORPUSCULAR HGB CONC 33 G/DL (32-36); MEAN CORPUSCULAR VOLUME 84 FL (80-99); MEAN PLATELET VOLUME 9.4 FL (7.4-10.4); MONOCYTES # (AUTO) 1.7 X 10^3 (0.0-1.0); MONOCYTES % (AUTO) 8 % (0-12); NEUTROPHILS # (AUTO) 19.3 X 10^3 (1.8-7.8); NEUTROPHILS % (AUTO) 87 % (42-75); PLATELET COUNT 457 10^3/uL (130-400); RED CELL DISTRIBUTION WIDTH 14.9 % (10.0-14.5); WHITE BLOOD COUNT 22.3 10^3/uL (4.3-11.0)
[2020-02-11 03:10] LABS: ALBUMIN 3.2 GM/DL (3.2-4.5); CHLORIDE 105 MMOL/L (98-107); POTASSIUM 4.1 MMOL/L (3.6-5.0); SODIUM 141 MMOL/L (135-145)
[2020-02-11 03:11] LABS: CALCIUM 8.3 MG/DL (8.5-10.1)
[2020-02-11 03:12] LABS: GLUCOSE 146 MG/DL (70-105)
[2020-02-11] MEDS: POTASSIUM CL 10MEQ/50ML IVPB 50 ML IV SCH (03:12)
[2020-02-11] MEDS: KCL 20 MEQ TAB (K-DUR) PO SCH (03:12)
[2020-02-11 03:13] LABS: TOTAL PROTEIN 6.8 GM/DL (6.4-8.2)
[2020-02-11 03:14] LABS: BILIRUBIN,TOTAL 0.4 MG/DL (0.1-1.0); CARBON DIOXIDE 23 MMOL/L (21-32)
[2020-02-11 03:16] LABS: ALKALINE PHOSPHATASE 94 U/L (40-136); GFR ESTIMATED > 60; PHOSPHORUS 3.7 MG/DL (2.3-4.7)
[2020-02-11 03:17] LABS: BUN/CREATININE RATIO 27
[2020-02-11 03:19] LABS: ALANINE AMINOTRANSFERASE 62 U/L (0-55)
[2020-02-11] MEDS: CATHETER FLUSH 10 ML SYR IV SCH ×3 (06:18→22:04)
[2020-02-11] MEDS: MAGNESIUM 1 GM/100 ML IVPB 100 ML IV SCH (06:18)
[2020-02-11] MEDS: HYDROCHLOROTHIAZIDE 12.5 MG (HCTZ) CAP PO SCH (09:10)
[2020-02-11] MEDS: DEXAMETHASONE 10 MG/ML (DECADRON) 1 ML VIAL IM SCH (09:10)
[2020-02-11] MEDS: lisINopril 20 MG (PRINIVIL) TABLET PO SCH (09:10)
--- NOTE | 2020-02-11 09:42 | Progress Note - Hospitalist ---
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 He was seen at [facility] clinic yesterday for SOB and was found to have oxygen saturation of 85% on room air and was referred to the ER. He reports that his symptoms started on 01/31 and he was sent home for work for this. His was diagnosed with COVID19 on the same day. He was found to have diffuse bilateral pneumonia and new oxygen requirement and was admitted to the ICU for hypoxic respiratory failure. This morning reports he is feeling much better but he did escalate to Vapotherm overnight. He denies any cough or SOB at this time. Subjective/Events-last exam Pt reports feeling better today. No new complaints. Breathing improving. Focused Exam Lactate Level 02/08/20 13:48: Lactic Acid Level 1.95 Objective Exam Vital Signs Vital Signs Date Time Temp Pulse Resp B/P (MAP) Pulse Ox O2 Delivery O2 Flow Rate FiO2 02/11/20 09:00 36.0 Vapotherm 35.00 55.00 02/11/20 07:54 96 60 02/11/20 07:00 129 27 147/108 (121) Capillary Refill : Less Than 3 Seconds General Appearance: No Apparent Distress, WD/WN Respiratory: No Respiratory Distress; No Crackles; Decreased Breath Sounds Cardiovascular: Regular Rate, Rhythm, No Murmur Neurologic/Psychiatric: Alert, Oriented x3 Results/Procedures Lab Laboratory Tests 02/11/20 02:43 Patient resulted labs reviewed. Imaging: Reviewed Imaging Films, Reviewed Imaging Report Assessment/Plan Assessment and Plan Assess & Plan/Chief Complaint Acute Hypoxic Respiratory Failure COVID19 Bilateral Viral Pneumonia COVID + Continue Decadron and Remdesivir Mild transaminitis, but still within range to continue Remdesivir TeleICU consulted, appreciate recs Vapotherm, wean oxygen to keep sats >90 Prone as able Hyperglycemia SSI Likely due to Decadron Leukocytosis ? due to decadron but continuing over multiple days Remains afebrile and clinically improving so will not start abx at this time Procal ordered HTN BP mildly elevated, trend DVT ppx: Lovenox Diagnosis/Problems Diagnosis/Problems (1) Acute respiratory failure Status: Acute Qualifiers: Respiratory failure complication: hypoxia Qualified Codes: J96.01 - Acute respiratory failure with hypoxia (2) Essential (primary) hypertension Status: Chronic (3) Hyperglycemia Status: Acute (4) Prophylactic measure Status: Acute (5) Coronavirus infection Status: Acute (6) Bilateral pneumonia Status: Acute Qualifiers: Pneumonia type: due to unspecified organism Lung location: unspecified part of lung Qualified Codes: J18.9 - Pneumonia, unspecified organism (7) Pneumonia due to human coronavirus Status: Acute Clinical Quality Measures DVT/VTE Risk/Contraindication: Risk Factor Score Per Nursin RFS Level Per Nursing on Admit: 4+=Very High CRYSTAL ADAM MD Feb 11, 2020 09:42
[2020-02-11] MEDS: REMDESIVIR INJ (NON-FORMULARY) 100 MG in NS (IVPB) 230 ML IV SCH (15:58)
[2020-02-12] VITALS (24 sets, daily range): BP systolic 120–171; BP diastolic 58–107
[2020-02-12] MEDS: RT-ALBUTEROL INHALER HFA (VENTOLIN HFA) 18 GM IH SCH ×6 (02:52→21:21)
[2020-02-12] MEDS: CATHETER FLUSH 10 ML SYR IV SCH ×3 (03:57→21:22)
[2020-02-12] MEDS: ENOXAPARIN 40 MG/0.4 ML (LOVENOX) SYR SC SCH ×2 (03:57→15:28)
[2020-02-12 04:12] LABS: BASOPHILS # (AUTO) 0.1 10^3/uL (0.0-0.1); BASOPHILS % (AUTO) 0 % (0-10); EOSINOPHILS % (AUTO) 0 % (0-10); HEMATOCRIT 42 % (40-54); HEMOGLOBIN 14.1 G/DL (13.3-17.7); LYMPHOCYTES # (AUTO) 1.4 X 10^3 (1.0-4.0); LYMPHOCYTES % (AUTO) 7 % (12-44); MEAN CORPUSCULAR HEMOGLOBIN 28 PG (25-34); MEAN CORPUSCULAR HGB CONC 34 G/DL (32-36); MEAN CORPUSCULAR VOLUME 84 FL (80-99); MEAN PLATELET VOLUME 9.5 FL (7.4-10.4); MONOCYTES # (AUTO) 1.9 X 10^3 (0.0-1.0); MONOCYTES % (AUTO) 9 % (0-12); NEUTROPHILS # (AUTO) 17.4 X 10^3 (1.8-7.8); NEUTROPHILS % (AUTO) 84 % (42-75); PLATELET COUNT 463 10^3/uL (130-400); RED CELL DISTRIBUTION WIDTH 14.6 % (10.0-14.5); WHITE BLOOD COUNT 20.8 10^3/uL (4.3-11.0)
[2020-02-12 04:56] LABS: ALBUMIN 3.3 GM/DL (3.2-4.5); CHLORIDE 104 MMOL/L (98-107); POTASSIUM 4.1 MMOL/L (3.6-5.0); SODIUM 139 MMOL/L (135-145)
[2020-02-12 04:57] LABS: CALCIUM 8.5 MG/DL (8.5-10.1)
[2020-02-12 04:59] LABS: GLUCOSE 185 MG/DL (70-105); TOTAL PROTEIN 6.9 GM/DL (6.4-8.2)
[2020-02-12 05:00] LABS: BILIRUBIN,TOTAL 0.4 MG/DL (0.1-1.0); CARBON DIOXIDE 22 MMOL/L (21-32)
[2020-02-12 05:02] LABS: ALKALINE PHOSPHATASE 94 U/L (40-136); CREATININE SERUM 0.74 MG/DL (0.60-1.30); GFR ESTIMATED > 60
[2020-02-12 05:03] LABS: BUN/CREATININE RATIO 27
[2020-02-12 05:05] LABS: ALANINE AMINOTRANSFERASE 85 U/L (0-55)
[2020-02-12 05:06] LABS: MAGNESIUM 2.1 MG/DL (1.6-2.4)
[2020-02-12] MEDS: POTASSIUM CL 10MEQ/50ML IVPB 50 ML IV SCH (05:06)
[2020-02-12] MEDS: KCL 20 MEQ TAB (K-DUR) PO SCH (05:06)
[2020-02-12] MEDS: MAGNESIUM 1 GM/100 ML IVPB 100 ML IV SCH (05:06)
--- NOTE | 2020-02-12 05:09 | Pulmonary Consultation ---
History of Present Illness History of Present Illness Date Seen by Provider: Feb 12, 2020 Time Seen by Provider: 05:04 Date of Admission Allergies and Home Medications Allergies Coded Allergies: No Known Drug Allergies (Unverified , 02/08/20) Home Medications Aspirin/Acetaminophen/Caffeine 1 Each Tablet, 2 EACH PO Q6-8HR PRN for Headache, (Reported) Atorvastatin Calcium 10 Mg Tablet, 10 MG PO DAILY, (Reported) Cyclobenzaprine HCl 10 Mg Tablet, 10 MG PO BID PRN for MUSCLE SPASMS, (Reported) Lisinopril/Hydrochlorothiazide 1 Each Tablet, 1 EACH PO DAILY, (Reported) Past Gcwrtcj-Ccthhs-Oazagm Hx Past Med/Social Hx: Reviewed Nursing Past Med/Soc Hx Patient Social History Alcohol Use: Denies Use Recreational Drug Use: No Smoking Status: Never a Smoker 2nd Hand Smoke Exposure: No Recent Foreign Travel: No Contact w/Someone Who Travel: No Recent Infectious Disease Expo: Yes Recent Hopitalizations: No Physical Abuse: No Sexual Abuse: No Mistreated: No Fear: No Seasonal Allergies Seasonal Allergies: No Past Medical History Surgeries: Yes Orthopedic Respiratory: Yes Asthma Cardiac: Yes High Cholesterol, Hypertension Neurological: No Genitourinary: No Gastrointestinal: No Musculoskeletal: Yes Gout Endocrine: No HEENT: No Cancer: No Psychosocial: No Family Medical History Reviewed Nursing Family Hx No Pertinent Family Hx Sepsis Event Evaluation Height, Weight, BMI Height: '" Weight: lbs. oz. kg; 41.00 BMI Method: Exam Exam Vital Signs Date Time Temp Pulse Resp B/P (MAP) Pulse Ox O2 Delivery O2 Flow Rate FiO2 02/12/20 04:00 93 Vapotherm 35.00 50 02/12/20 04:00 76 25 141/99 (113) 92 Vapotherm 35.00 50.00 02/12/20 03:45 36.5 Vapotherm 35.00 50.00 02/12/20 03:00 72 27 120/69 (86) 92 Vapotherm 35.00 50.00 02/12/20 02:52 94 Vapotherm 35.00 50 02/12/20 02:00 58 15 131/97 (108) Vapotherm 35.00 50.00 02/12/20 02:00 94 02/12/20 01:00 64 19 140/93 (109) 92 Vapotherm 35.00 50.00 02/12/20 01:00 64 02/12/20 00:20 94 Vapotherm 35.00 50 02/12/20 00:00 36.2 Vapotherm 35.00 50.00 02/12/20 00:00 64 26 126/83 (97) 95 Vapotherm 35.00 50.00 02/11/20 23:00 71 26 133/98 (110) 92 Vapotherm 35.00 50.00 02/11/20 22:10 94 Vapotherm 35.00 50 02/11/20 22:00 61 21 140/97 (111) 92 Vapotherm 35.00 50.00 02/11/20 21:00 60 13 137/94 (108) 94 Vapotherm 35.00 50.00 02/11/20 20:00 68 14 145/86 (105) 94 Vapotherm 35.00 50.00 02/11/20 19:45 36.4 Vapotherm 35.00 50.00 02/11/20 19:45 93 Vapotherm 35.00 50 02/11/20 19:00 68 24 137/84 (101) 93 Vapotherm 35.00 50.00 02/11/20 19:00 73 02/11/20 18:23 94 Vapotherm 35.00 50 02/11/20 18:00 77 24 135/89 (104) 95 Vapotherm 35.00 50.00 02/11/20 17:00 61 38 134/97 (109) 96 Vapotherm 35.00 50.00 02/11/20 16:00 Vapotherm 35.00 50 02/11/20 16:00 80 144/95 (111) 92 Vapotherm 35.00 50.00 02/11/20 15:58 36.4 02/11/20 15:00 86 147/96 (113) 95 Vapotherm 35.00 50.00 02/11/20 14:26 96 Vapotherm 35.00 50 02/11/20 14:00 105 171/95 (120) 91 Vapotherm 35.00 50.00 02/11/20 13:10 79 02/11/20 13:00 71 148/106 (120) 93 Vapotherm 35.00 50.00 02/11/20 12:03 36.2 50.00 02/11/20 12:00 Vapotherm 35.00 50 02/11/20 12:00 66 29 163/116 (132) 93 Vapotherm 35.00 55.00 02/11/20 11:28 96 Vapotherm 35.00 55 02/11/20 11:00 26 148/100 (116) 90 Vapotherm 35.00 55.00 02/11/20 10:00 69 24 174/113 (133) 95 Vapotherm 35.00 55.00 02/11/20 09:00 36.0 Vapotherm 35.00 55.00 02/11/20 09:00 65 27 150/115 (127) 91 Vapotherm 35.00 55.00 02/11/20 08:00 84 20 139/119 (126) 93 Vapotherm 35.00 60.00 02/11/20 08:00 Vapotherm 35.00 60 02/11/20 07:54 96 Vapotherm 35.00 60 02/11/20 07:03 64 02/11/20 07:00 129 27 147/108 (121) 97 Vapotherm 35.00 60.00 02/11/20 06:00 63 20 134/94 (107) 93 Vapotherm 35.00 60.00 I & O 02/12/20 07:00 Intake Total 1625 ml Balance 1625 ml Height & Weight Height: '" Weight: lbs. oz. kg; 41.00 BMI Method: General Appearance: No Apparent Distress, WD/WN HEENT: PERRL/EOMI, Moist Mucous Membranes; No Scleral Icterus (L), No Scleral Icterus (R) Neck: Normal Inspection, Supple Respiratory: No Respiratory Distress; No Crackles; Decreased Breath Sounds Cardiovascular: Regular Rate, Rhythm, No Murmur Capillary Refill: Less Than 3 Seconds Extremity: Normal Range of Motion, Non Tender Neurologic/Psychiatric: Alert, Oriented x3 Results Lab Laboratory Tests 02/11/20 02:43 02/12/20 03:55 Assessment/Plan Assessment/Plan Acute hypoxic respiratory failure with COVID + -Currently requiring Vapotherm -Continue Decadron and Remdesivir -Awake proning Hyperglycemia SSI monitor Leukocytosis -Monitor probably secondary to decadron -Cultures are negative -Procalcitonin is negative x 1 and repeat is pending HTN DVT ppx: AMAN Miller DO Feb 12, 2020 05:09
[2020-02-12] MEDS: DEXAMETHASONE 10 MG/ML (DECADRON) 1 ML VIAL IM SCH (07:53)
[2020-02-12] MEDS: HYDROCHLOROTHIAZIDE 12.5 MG (HCTZ) CAP PO SCH (07:54)
[2020-02-12] MEDS: lisINopril 20 MG (PRINIVIL) TABLET PO SCH (07:54)
--- NOTE | 2020-02-12 08:44 | Diagnostic Imaging Report ---
INDICATION: Respiratory distress COMPARISON: 02/08/2020 TECHNIQUE: Single radiograph chest dated 02/12/2020 FINDINGS: The cardiac silhouette is mildly enlarged, though stable. No significant pulmonary vascular congestion. Extensive bilateral pulmonary opacities are again identified, improved since the prior examination. No significant pleural effusion. No pneumothorax. No acute osseous abnormality. IMPRESSION: Improved though persistent extensive bilateral pulmonary opacities. Dictated by: Dictated on workstation # [id number]
[2020-02-12] MEDS ORDERED: PANTOPRAZOLE 40 MG (PROTONIX) VIAL IV SCH (09:00)
[2020-02-12] MEDS: REMDESIVIR INJ (NON-FORMULARY) 100 MG in NS (IVPB) 230 ML IV SCH (15:28)
[2020-02-13] VITALS (12 sets, daily range): BP systolic 119–146; BP diastolic 80–109
[2020-02-13 01:01] LABS: BASOPHILS # (AUTO) 0.1 10^3/uL (0.0-0.1); BASOPHILS % (AUTO) 0 % (0-10); EOSINOPHILS % (AUTO) 0 % (0-10); HEMATOCRIT 43 % (40-54); HEMOGLOBIN 14.7 G/DL (13.3-17.7); LYMPHOCYTES # (AUTO) 1.7 X 10^3 (1.0-4.0); LYMPHOCYTES % (AUTO) 7 % (12-44); MEAN CORPUSCULAR HEMOGLOBIN 28 PG (25-34); MEAN CORPUSCULAR HGB CONC 34 G/DL (32-36); MEAN CORPUSCULAR VOLUME 83 FL (80-99); MEAN PLATELET VOLUME 9.3 FL (7.4-10.4); MONOCYTES % (AUTO) 8 % (0-12); NEUTROPHILS # (AUTO) 19.7 X 10^3 (1.8-7.8); NEUTROPHILS % (AUTO) 84 % (42-75); PLATELET COUNT 507 10^3/uL (130-400); RED CELL DISTRIBUTION WIDTH 14.7 % (10.0-14.5); WHITE BLOOD COUNT 23.5 10^3/uL (4.3-11.0)
[2020-02-13 01:11] LABS: ALBUMIN 3.2 GM/DL (3.2-4.5)
[2020-02-13 01:12] LABS: CHLORIDE 103 MMOL/L (98-107); SODIUM 138 MMOL/L (135-145)
[2020-02-13 01:13] LABS: CALCIUM 8.3 MG/DL (8.5-10.1)
[2020-02-13 01:14] LABS: GLUCOSE 188 MG/DL (70-105); TOTAL PROTEIN 6.6 GM/DL (6.4-8.2)
[2020-02-13 01:15] LABS: CARBON DIOXIDE 24 MMOL/L (21-32)
[2020-02-13 01:17] LABS: ALKALINE PHOSPHATASE 101 U/L (40-136); PHOSPHORUS 3.6 MG/DL (2.3-4.7)
[2020-02-13 01:18] LABS: GFR ESTIMATED > 60
[2020-02-13 01:19] LABS: BUN/CREATININE RATIO 25
[2020-02-13 01:21] LABS: ALANINE AMINOTRANSFERASE 74 U/L (0-55); MAGNESIUM 2.1 MG/DL (1.6-2.4)
[2020-02-13] MEDS: RT-ALBUTEROL INHALER HFA (VENTOLIN HFA) 18 GM IH SCH ×6 (01:44→22:21)
[2020-02-13] MEDS: MAGNESIUM 1 GM/100 ML IVPB 100 ML IV SCH (05:23)
[2020-02-13] MEDS: CATHETER FLUSH 10 ML SYR IV SCH ×2 (05:23→13:17)
[2020-02-13] MEDS: POTASSIUM CL 10MEQ/50ML IVPB 50 ML IV SCH (05:23)
[2020-02-13] MEDS: ENOXAPARIN 40 MG/0.4 ML (LOVENOX) SYR SC SCH ×2 (05:23→16:58)
[2020-02-13] MEDS: KCL 20 MEQ TAB (K-DUR) PO SCH (05:23)
--- NOTE | 2020-02-13 06:08 | Pulmonary Progress Note ---
Subjective Time Seen by a Provider: 06:01 Subjective/Events-last exam Pt is currently requiring highflow Vapotherm at 35% oxygen Sepsis Event Evaluation Height, Weight, BMI Height: '" Weight: lbs. oz. kg; 41.00 BMI Method: Exam Exam Vital Signs Date Time Temp Pulse Resp B/P (MAP) Pulse Ox O2 Delivery O2 Flow Rate FiO2 02/13/20 05:20 36.4 91 Vapotherm 30.00 35.00 02/13/20 04:00 66 22 136/104 (115) 94 Vapotherm 35.00 40.00 02/13/20 04:00 91 Vapotherm 30.00 35 02/13/20 03:00 65 20 119/80 (93) 93 Vapotherm 35.00 40.00 02/13/20 02:00 71 27 124/88 (100) 94 Vapotherm 35.00 40.00 02/13/20 01:39 92 Vapotherm 35.00 35 02/13/20 01:00 72 24 136/90 (105) 91 Vapotherm 35.00 40.00 02/13/20 01:00 64 02/13/20 00:50 72 23 146/96 (113) 93 Vapotherm 35.00 40.00 02/13/20 00:00 120 23 90 Vapotherm 35.00 40.00 02/13/20 00:00 93 Vapotherm 35.00 40 02/13/20 00:00 36.0 02/12/20 23:00 77 22 149/97 (114) 94 Vapotherm 35.00 40.00 02/12/20 22:00 115 31 163/100 (121) Vapotherm 35.00 40.00 02/12/20 21:21 94 35.00 40 02/12/20 21:19 36.4 02/12/20 21:00 78 26 134/91 (105) 94 Vapotherm 35.00 40.00 02/12/20 20:30 93 Vapotherm 35.00 40 02/12/20 20:00 86 27 138/91 (107) 91 Vapotherm 35.00 40.00 02/12/20 19:11 92 Vapotherm 35.00 40 02/12/20 19:00 85 30 155/102 (119) 92 Vapotherm 35.00 40.00 02/12/20 19:00 85 02/12/20 18:00 84 30 140/99 (113) 94 Vapotherm 35.00 40.00 02/12/20 17:00 86 22 141/102 (115) 94 Vapotherm 35.00 40.00 02/12/20 16:00 80 32 139/95 (110) 93 Vapotherm 35.00 40.00 02/12/20 16:00 93 Vapotherm 35.00 45 02/12/20 16:00 36.3 02/12/20 15:00 85 23 136/88 (104) 92 Vapotherm 35.00 40.00 02/12/20 14:18 93 Vapotherm 35.00 40 02/12/20 14:00 73 32 137/95 (109) 94 Vapotherm 35.00 40.00 02/12/20 13:28 36.6 90 92 40 02/12/20 13:00 88 17 94 Vapotherm 35.00 40.00 02/12/20 12:57 99 02/12/20 12:00 110 23 137/58 (84) 91 Vapotherm 35.00 40.00 02/12/20 11:58 36.6 02/12/20 11:58 93 Vapotherm 35.00 45 02/12/20 11:00 65 14 130/97 (108) 94 Vapotherm 35.00 40.00 02/12/20 10:07 93 Vapotherm 35.00 45 02/12/20 10:00 103 28 171/105 (127) 93 Vapotherm 35.00 40.00 02/12/20 09:00 67 29 137/86 (103) 95 Vapotherm 35.00 45.00 02/12/20 08:00 86 13 142/101 (115) 92 Vapotherm 35.00 45.00 02/12/20 08:00 93 Vapotherm 35.00 45 02/12/20 08:00 36.8 02/12/20 07:00 66 02/12/20 07:00 67 31 133/107 (116) 94 Vapotherm 35.00 45.00 02/12/20 06:34 Vapotherm 35.00 45.00 02/12/20 06:32 93 Vapotherm 35.00 45 I & O 02/13/20 07:00 Intake Total 1415 ml Balance 1415 ml Height & Weight Height: '" Weight: lbs. oz. kg; 41.00 BMI Method: General Appearance: No Apparent Distress, WD/WN HEENT: PERRL/EOMI, Moist Mucous Membranes; No Scleral Icterus (L), No Scleral Icterus (R) Neck: Normal Inspection, Supple Respiratory: No Respiratory Distress; No Crackles; Decreased Breath Sounds Cardiovascular: Regular Rate, Rhythm, No Murmur Capillary Refill: Less Than 3 Seconds Extremity: Normal Range of Motion, Non Tender Neurologic/Psychiatric: Alert, Oriented x3 Results Lab Laboratory Tests 02/12/20 03:55 02/13/20 00:51 Assessment/Plan Assessment/Plan Acute hypoxic respiratory failure with COVID + -Currently requiring Vapotherm requiring 35 % -[place] pt to regular NC. -decrease Decadron and continue Remdesivir -Awake proning Hyperglycemia SSI monitor Leukocytosis -Monitor probably secondary to decadron -Cultures are negative -Procalcitonin is negative x 2 HTN DVT ppx: Lovenox Pt appears to be doing better will transfer to 4th floor with tele and continue to monitor close. Once pt transfers to 4th floor I am going to sign off. Please call with any questions or concerns. I notified Dr. Palmer of pt transferring to 4th. AMAN HAQUE DO Feb 13, 2020 06:08
[2020-02-13] MEDS ORDERED: DEXAMETHASONE 4 MG/ML SDV (DECADRON) IV SCH (09:00)
[2020-02-13] MEDS: lisINopril 20 MG (PRINIVIL) TABLET PO SCH (09:08)
[2020-02-13] MEDS: HYDROCHLOROTHIAZIDE 12.5 MG (HCTZ) CAP PO SCH (09:08)
[2020-02-13] MEDS: PANTOPRAZOLE 40 MG (PROTONIX) TAB PO SCH (09:08)
[2020-02-13 12:11] LABS: BILIRUBIN,TOTAL 0.3 MG/DL (0.1-1.0)
--- NOTE | 2020-02-13 14:34 | NUR ---
pt changed rooms and medication was not taken with him. will call pharmacy to get a replacement. Addendum: 02/13/20 at 1435 by AMELIA SOLOMON RT Amended: Links added.
[2020-02-14] VITALS (7 sets, daily range): BP systolic 96–126; BP diastolic 60–80
[2020-02-14] MEDS: RT-ALBUTEROL INHALER HFA (VENTOLIN HFA) 18 GM IH SCH ×6 (02:19→21:27)
[2020-02-14] MEDS: ENOXAPARIN 40 MG/0.4 ML (LOVENOX) SYR SC SCH ×2 (05:02→17:17)
[2020-02-14] MEDS: CATHETER FLUSH 10 ML SYR IV SCH ×4 (05:02→20:44)
[2020-02-14 05:47] LABS: BASOPHILS # (AUTO) 0.1 10^3/uL (0.0-0.1); BASOPHILS % (AUTO) 0 % (0-10); EOSINOPHILS # (AUTO) 0.1 10^3/uL (0.0-0.3); EOSINOPHILS % (AUTO) 0 % (0-10); HEMATOCRIT 43 % (40-54); HEMOGLOBIN 14.4 G/DL (13.3-17.7); LYMPHOCYTES # (AUTO) 2.2 X 10^3 (1.0-4.0); LYMPHOCYTES % (AUTO) 11 % (12-44); MEAN CORPUSCULAR HEMOGLOBIN 28 PG (25-34); MEAN CORPUSCULAR HGB CONC 33 G/DL (32-36); MEAN CORPUSCULAR VOLUME 84 FL (80-99); MEAN PLATELET VOLUME 9.5 FL (7.4-10.4); MONOCYTES # (AUTO) 1.7 X 10^3 (0.0-1.0); MONOCYTES % (AUTO) 8 % (0-12); NEUTROPHILS # (AUTO) 16.5 X 10^3 (1.8-7.8); NEUTROPHILS % (AUTO) 80 % (42-75); PLATELET COUNT 507 10^3/uL (130-400); RED CELL DISTRIBUTION WIDTH 14.8 % (10.0-14.5); WHITE BLOOD COUNT 20.6 10^3/uL (4.3-11.0)
[2020-02-14 05:56] LABS: ALBUMIN 3.1 GM/DL (3.2-4.5); CHLORIDE 106 MMOL/L (98-107); POTASSIUM 4.2 MMOL/L (3.6-5.0); SODIUM 138 MMOL/L (135-145)
[2020-02-14 05:57] LABS: CALCIUM 8.3 MG/DL (8.5-10.1)
[2020-02-14 05:59] LABS: GLUCOSE 129 MG/DL (70-105); TOTAL PROTEIN 6.4 GM/DL (6.4-8.2)
[2020-02-14 06:00] LABS: BILIRUBIN,TOTAL 0.4 MG/DL (0.1-1.0); CARBON DIOXIDE 23 MMOL/L (21-32)
[2020-02-14 06:02] LABS: ALKALINE PHOSPHATASE 92 U/L (40-136); CREATININE SERUM 0.81 MG/DL (0.60-1.30); GFR ESTIMATED > 60; PHOSPHORUS 3.5 MG/DL (2.3-4.7)
[2020-02-14 06:03] LABS: BUN/CREATININE RATIO 32
[2020-02-14 06:05] LABS: ALANINE AMINOTRANSFERASE 58 U/L (0-55); MAGNESIUM 2.3 MG/DL (1.6-2.4)
[2020-02-14] MEDS: HYDROCHLOROTHIAZIDE 12.5 MG (HCTZ) CAP PO SCH (08:01)
[2020-02-14] MEDS: lisINopril 20 MG (PRINIVIL) TABLET PO SCH (08:01)
[2020-02-14] MEDS: PANTOPRAZOLE 40 MG (PROTONIX) TAB PO SCH (08:01)
[2020-02-14] MEDS ORDERED: DEXAMETHASONE 4 MG/ML SDV (DECADRON) IV SCH (09:00)
--- NOTE | 2020-02-14 15:56 | Progress Note - Hospitalist ---
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 He was seen at [facility] clinic yesterday for SOB and was found to have oxygen saturation of 85% on room air and was referred to the ER. He reports that his symptoms started on 01/31 and he was sent home for work for this. His was diagnosed with COVID19 on the same day. He was found to have diffuse bilateral pneumonia and new oxygen requirement and was admitted to the ICU for hypoxic respiratory failure. This morning reports he is feeling much better but he did escalate to Vapotherm overnight. He denies any cough or SOB at this time. Subjective/Events-last exam He reports no complaints or concerns today. He denies any shortness of breath. He denies any fevers or chills. He is still having a cough. He has been eating and drinking without issue. He has been ambulating with no problems. Objective Exam Vital Signs Vital Signs Date Time Temp Pulse Resp B/P (MAP) Pulse Ox O2 Delivery O2 Flow Rate FiO2 02/14/20 13:00 87 02/14/20 12:37 36.6 22 114/67 (83) 94 Nasal Cannula 2.00 02/13/20 08:07 35 Capillary Refill : Less Than 3 Seconds General Appearance: No Apparent Distress, Obese Respiratory: Lungs Clear, Normal Breath Sounds, No Respiratory Distress Cardiovascular: Regular Rate, Rhythm, No Edema, No Murmur Gastrointestinal: Normal Bowel Sounds, Non Tender, Soft Extremity: Normal Inspection, Non Tender, No Pedal Edema Neurologic/Psychiatric: Alert, No Motor/Sensory Deficits, Normal Mood/Affect; No Disoriented Skin: Normal Color, Warm/Dry Results/Procedures Lab Laboratory Tests 02/14/20 05:40 Patient resulted labs reviewed. Assessment/Plan Assessment and Plan Assess & Plan/Chief Complaint Acute Hypoxic Respiratory Failure COVID-19 Bilateral Viral Pneumonia COVID PCR positive Completed course of Remdesivir Continue Decadron Now requiring nasal cannula 4 L, improving Steroid-induced hyperglycemia Continue sliding scale Leukocytosis Likely reactive due to steroids No identifiable infectious source HTN BP well-controlled Continue lisinopril and hydrochlorothiazide Morbid obesity Chronically significant, no acute management needs DVT ppx: Lovenox Diagnosis/Problems Diagnosis/Problems (1) COVID-19 Status: Acute (2) Acute respiratory failure with hypoxia Status: Acute (3) Steroid-induced hyperglycemia Status: Acute (4) Morbid obesity Status: Chronic (5) Essential (primary) hypertension Status: Chronic Clinical Quality Measures DVT/VTE Risk/Contraindication: Risk Factor Score Per Nursin RFS Level Per Nursing on Admit: 4+=Very High MARTIN SWANSON MD Feb 14, 2020 15:56
[2020-02-14] MEDS ORDERED: diphenhydrAMINE 25 MG TAB (BENADRYL) PO PRN (18:15)
[2020-02-15] MEDS: RT-ALBUTEROL INHALER HFA (VENTOLIN HFA) 18 GM IH SCH ×2 (02:27→08:04)
[2020-02-15 03:43] VITALS: BP 120/73
[2020-02-15] MEDS: ENOXAPARIN 40 MG/0.4 ML (LOVENOX) SYR SC SCH (04:20)
[2020-02-15] MEDS: CATHETER FLUSH 10 ML SYR IV SCH ×2 (04:21→14:01)
[2020-02-15 05:23] LABS: BASOPHILS # (AUTO) 0.1 10^3/uL (0.0-0.1); BASOPHILS % (AUTO) 1 % (0-10); EOSINOPHILS # (AUTO) 0.1 10^3/uL (0.0-0.3); EOSINOPHILS % (AUTO) 1 % (0-10); HEMATOCRIT 46 % (40-54); HEMOGLOBIN 15.5 G/DL (13.3-17.7); LYMPHOCYTES # (AUTO) 2.5 X 10^3 (1.0-4.0); LYMPHOCYTES % (AUTO) 11 % (12-44); MEAN CORPUSCULAR HEMOGLOBIN 28 PG (25-34); MEAN CORPUSCULAR HGB CONC 34 G/DL (32-36); MEAN CORPUSCULAR VOLUME 84 FL (80-99); MEAN PLATELET VOLUME 9.5 FL (7.4-10.4); MONOCYTES % (AUTO) 9 % (0-12); NEUTROPHILS # (AUTO) 17.3 X 10^3 (1.8-7.8); NEUTROPHILS % (AUTO) 79 % (42-75); PLATELET COUNT 571 10^3/uL (130-400); RED CELL DISTRIBUTION WIDTH 15.2 % (10.0-14.5)
[2020-02-15 05:32] LABS: ALBUMIN 3.3 GM/DL (3.2-4.5); CHLORIDE 106 MMOL/L (98-107); POTASSIUM 4.4 MMOL/L (3.6-5.0); SODIUM 140 MMOL/L (135-145)
[2020-02-15 05:33] LABS: CALCIUM 8.5 MG/DL (8.5-10.1)
[2020-02-15 05:34] LABS: GLUCOSE 123 MG/DL (70-105); TOTAL PROTEIN 6.7 GM/DL (6.4-8.2)
[2020-02-15 05:35] LABS: CARBON DIOXIDE 23 MMOL/L (21-32)
[2020-02-15 05:36] LABS: BILIRUBIN,TOTAL 0.4 MG/DL (0.1-1.0)
[2020-02-15 05:38] LABS: ALKALINE PHOSPHATASE 90 U/L (40-136); CREATININE SERUM 0.91 MG/DL (0.60-1.30); GFR ESTIMATED > 60
[2020-02-15 05:39] LABS: BUN/CREATININE RATIO 35
[2020-02-15 05:41] LABS: ALANINE AMINOTRANSFERASE 48 U/L (0-55)
[2020-02-15 08:00] VITALS: BP 125/81
[2020-02-15] MEDS: PANTOPRAZOLE 40 MG (PROTONIX) TAB PO SCH (08:06)
[2020-02-15] MEDS: lisINopril 20 MG (PRINIVIL) TABLET PO SCH (08:06)
[2020-02-15] MEDS: HYDROCHLOROTHIAZIDE 12.5 MG (HCTZ) CAP PO SCH (08:06)
[2020-02-15] MEDS ORDERED: DEXAMETHASONE 4 MG/ML SDV (DECADRON) IV SCH (09:00)
[2020-02-15 10:39] VITALS: BP 125/81
[2020-02-15] MEDS ORDERED: RT-ALBUTEROL INHALER HFA (VENTOLIN HFA) 18 GM IH PRN (11:00)
[2020-02-15 11:35] VITALS: BP 110/71
[2020-02-15 15:21] VITALS: BP 110/71
--- NOTE | 2020-02-15 16:45 | NUR ---
Notified [facility] dept of patient discharge. They said they would follow up and educate him on quarantine.
[2020-02-15] MEDS ORDERED: RT-ALBUTEROL INHALER HFA (VENTOLIN HFA) 18 GM IH SCH (21:00)
== END 2020-02-15 15:23 | disposition home or self-care (01) | DRG 177 ==
LOC: ER 13:11 → ICU 14:01 → 4TH 02-13 10:41
PROVIDERS: ADMIT Family Medicine; ATTEND Family Medicine
DX: U07.1 COVID-19 (principal); J12.89 Other viral pneumonia; J96.01 Acute respiratory failure with hypoxia; Z68.41 Body mass index [BMI] 40.0-44.9, adult; I10 Essential (primary) hypertension; J45.909 Unspecified asthma, uncomplicated; E66.01 Morbid (severe) obesity due to excess calories; E78.00 Pure hypercholesterolemia, unspecified; R73.9 Hyperglycemia, unspecified; T38.0X5A Adverse effect of glucocorticoids and synthetic analogues, initial encounter; M10.9 Gout, unspecified; Z87.39 Personal history of other diseases of the musculoskeletal system and connective tissue
CPT/HCPCS: 36415; 71045; 80048; 80053; 80076; 81000; 82728; 83605; 83615; 83735; 83880; 84100; 84145; 85007; 85025; 85027; 85379; 85610; 85652; 85730; 86141; 87040; 87081; 87088; 87635; 94640; 94664; 94760; 96361; 96374; 96375

== ENCOUNTER 2020-03-10 23:25 | Emergency (ER) | payer OTHER ==
[~2020-03-10] VITALS: Ht 165.1 cm; Wt 113.4 kg
[~2020-03-10 23:25] MED LIST: ASPI-789 PO; ATOR10TA66 PO; CYCL10TA9 PO; LISI1TAB25 PO
--- OUTSIDE RECORDS SUMMARY | 2020-03-10 23:30 | XMS REPORT | Continuity of Care Document ---
Author Author [facility] Organization [employer] Address Unknown Phone Unavailable Allergies Active Description Code Type Severity Reaction Onset Reported/Identified Relationship to Patient Clinical Status Yes No Known Drug Allergies [id number] Drug Allergy Unknown N/A 02/08/2020 Medications There is no data. Problems Date Dx Coded Attending Type Code Diagnosis Diagnosed By 02/10/2020 CRYSTAL ADAM MD, Ot E78. 00 PURE HYPERCHOLESTEROLEMIA, UNSPECIFIED 02/10/2020 CRYSTAL ADAM MD Ot I10 ESSENTIAL (PRIMARY) HYPERTENSION 02/10/2020 CRYSTAL ADAM MD Ot J12. 89 OTHER VIRAL PNEUMONIA 02/10/2020 CRYSTAL ADAM MD Ot J45.909 UNSPECIFIED ASTHMA, UNCOMPLICATED 02/10/2020 CRYSTAL ADAM MD Ot J96. 01 ACUTE RESPIRATORY FAILURE WITH HYPOXIA 02/10/2020 CRYSTAL ADAM MD Ot R73. 9 HYPERGLYCEMIA, UNSPECIFIED 02/10/2020 CRYSTAL ADAM MD Ot T38.0X5A ADVERSE EFFECT OF GLUCOCORT/SYNTH ANALOG 02/10/2020 CRYSTAL ADAM MD Ot U07. 1 COVID-19 02/10/2020 CRYSTAL ADAM MD Ot Z87. 39 PERSONAL HISTORY OF DISEASES OF THE MS S 02/11/2020 CRYSTAL ADAM MD Ot E78. 00 PURE HYPERCHOLESTEROLEMIA, UNSPECIFIED 02/11/2020 CRYSTAL ADAM MD Ot I10 ESSENTIAL (PRIMARY) HYPERTENSION 02/11/2020 CRYSTAL ADAM MD Ot J12. 89 OTHER VIRAL PNEUMONIA 02/11/2020 CRYSTAL ADAM MD Ot J45.909 UNSPECIFIED ASTHMA, UNCOMPLICATED 02/11/2020 CRYSTAL ADAM MD Ot J96. 01 ACUTE RESPIRATORY FAILURE WITH HYPOXIA 02/11/2020 CRYSTAL ADAM MD Ot R73. 9 HYPERGLYCEMIA, UNSPECIFIED 02/11/2020 CRYSTAL ADAM MD Ot T38.0X5A ADVERSE EFFECT OF GLUCOCORT/SYNTH ANALOG 02/11/2020 CRYSTAL ADAM MD Ot U07. 1 COVID-19 02/11/2020 CRYSTAL ADAM MD Ot Z87. 39 PERSONAL HISTORY OF DISEASES OF THE MS S 02/12/2020 CRYSTAL ADAM MD Ot E78. 00 PURE HYPERCHOLESTEROLEMIA, UNSPECIFIED 02/12/2020 CRYSTAL ADAM MD Ot I10 ESSENTIAL (PRIMARY) HYPERTENSION 02/12/2020 CRYSTAL ADAM MD Ot J12. 89 OTHER VIRAL PNEUMONIA 02/12/2020 KIA VILLALOBOS, CRYSTAL Vieira Ot J45.909 UNSPECIFIED ASTHMA, UNCOMPLICATED 02/12/2020 CRYSTAL ADAM MD Ot J96. 01 ACUTE RESPIRATORY FAILURE WITH HYPOXIA 02/12/2020 CRYSTAL ADAM MD Ot R73. 9 HYPERGLYCEMIA, UNSPECIFIED 02/12/2020 CRYSTAL ADAM MD Ot T38.0X5A ADVERSE EFFECT OF GLUCOCORT/SYNTH ANALOG 02/12/2020 CRYSTAL ADAM MD Ot U07. 1 COVID-19 02/12/2020 CRYSTAL ADAM MD Ot Z87. 39 PERSONAL HISTORY OF DISEASES OF THE MS S 02/13/2020 CRYSTAL ADAM MD Ot E78. 00 PURE HYPERCHOLESTEROLEMIA, UNSPECIFIED 02/13/2020 CRYSTAL ADAM MD Ot I10 ESSENTIAL (PRIMARY) HYPERTENSION 02/13/2020 CRYSTAL ADAM MD Ot J12. 89 OTHER VIRAL PNEUMONIA 02/13/2020 CRYSTAL ADAM MD Ot J45.909 UNSPECIFIED ASTHMA, UNCOMPLICATED 02/13/2020 KIA VILLALOBOS, CRYSTAL Vieira Ot J96. 01 ACUTE RESPIRATORY FAILURE WITH HYPOXIA 02/13/2020 CRYSTAL ADAM MD Ot R73. 9 HYPERGLYCEMIA, UNSPECIFIED 02/13/2020 CRYSTAL ADAM MD Ot T38.0X5A ADVERSE EFFECT OF GLUCOCORT/SYNTH ANALOG 02/13/2020 CRYSTAL ADAM MD Ot U07. 1 COVID-19 02/13/2020 CRYSTAL ADAM MD Ot Z87. 39 PERSONAL HISTORY OF DISEASES OF THE MS S 02/13/2020 CRYSTAL ADAM MD Ot E78. 00 PURE HYPERCHOLESTEROLEMIA, UNSPECIFIED 02/13/2020 CRYSTAL ADAM MD Ot I10 ESSENTIAL (PRIMARY) HYPERTENSION 02/13/2020 CRYSTAL ADAM MD Ot J12. 89 OTHER VIRAL PNEUMONIA 02/13/2020 CRYSTAL ADAM MD Ot J45.909 UNSPECIFIED ASTHMA, UNCOMPLICATED 02/13/2020 CRYSTAL ADAM MD Ot J96. 01 ACUTE RESPIRATORY FAILURE WITH HYPOXIA 02/13/2020 CRYSTAL ADAM MD Ot R73. 9 HYPERGLYCEMIA, UNSPECIFIED 02/13/2020 CRYSTAL ADAM MD Ot T38.0X5A ADVERSE EFFECT OF GLUCOCORT/SYNTH ANALOG 02/13/2020 CRYSTAL ADAM MD Ot U07. 1 COVID-19 02/13/2020 CRYSTAL ADAM MD Ot Z87. 39 PERSONAL HISTORY OF DISEASES OF THE MS S 02/14/2020 CRYSTAL ADAM MD Ot E78. 00 PURE HYPERCHOLESTEROLEMIA, UNSPECIFIED 02/14/2020 CRYSTAL ADAM MD Ot I10 ESSENTIAL (PRIMARY) HYPERTENSION 02/14/2020 CRYSTAL ADAM MD Ot J12. 89 OTHER VIRAL PNEUMONIA 02/14/2020 CRYSTAL ADAM MD Ot J45.909 UNSPECIFIED ASTHMA, UNCOMPLICATED 02/14/2020 CRYSTAL ADAM MD Ot J96. 01 ACUTE RESPIRATORY FAILURE WITH HYPOXIA 02/14/2020 CRYSTAL ADAM MD Ot R73. 9 HYPERGLYCEMIA, UNSPECIFIED 02/14/2020 CRYSTAL ADAM MD Ot T38.0X5A ADVERSE EFFECT OF GLUCOCORT/SYNTH ANALOG 02/14/2020 CRYSTAL ADAM MD Ot U07. 1 COVID-19 02/14/2020 CRYSTAL ADAM MD Ot Z87. 39 PERSONAL HISTORY OF DISEASES OF THE MS S 02/15/2020 CRYSTAL ADAM MD Ot E78. 00 PURE HYPERCHOLESTEROLEMIA, UNSPECIFIED 02/15/2020 CRYSTAL ADAM MD Ot I10 ESSENTIAL (PRIMARY) HYPERTENSION 02/15/2020 CRYSTAL ADAM MD Ot J12. 89 OTHER VIRAL PNEUMONIA 02/15/2020 CRYSTAL ADAM MD Ot J45.909 UNSPECIFIED ASTHMA, UNCOMPLICATED 02/15/2020 CRYSTAL ADAM MD Ot J96. 01 ACUTE RESPIRATORY FAILURE WITH HYPOXIA 02/15/2020 CRYSTAL ADAM MD Ot R73. 9 HYPERGLYCEMIA, UNSPECIFIED 02/15/2020 CRYSTAL ADAM MD Ot T38.0X5A ADVERSE EFFECT OF GLUCOCORT/SYNTH ANALOG 02/15/2020 CRYSTAL ADAM MD Ot U07. 1 COVID-19 02/15/2020 CRYSTAL ADAM MD, Ot Z87. 39 PERSONAL HISTORY OF DISEASES OF THE MS S 02/15/2020 CRYSTAL ADAM MD Ot E66. 01 MORBID (SEVERE) OBESITY DUE TO EXCESS CA 02/15/2020 CRYSTAL ADAM MD Ot E78. 00 PURE HYPERCHOLESTEROLEMIA, UNSPECIFIED 02/15/2020 CRYSTAL ADAM MD Ot I10 ESSENTIAL (PRIMARY) HYPERTENSION 02/15/2020 CRYSTAL ADAM MD Ot J12. 89 OTHER VIRAL PNEUMONIA 02/15/2020 CRYSTAL ADAM MD Ot J45.909 UNSPECIFIED ASTHMA, UNCOMPLICATED 02/15/2020 CRYSTAL ADAM MD, Ot J96. 01 ACUTE RESPIRATORY FAILURE WITH HYPOXIA 02/15/2020 CRYSTAL ADAM MD Ot M10. 9 GOUT, UNSPECIFIED 02/15/2020 CRYSTAL ADAM MD, Ot R73. 9 HYPERGLYCEMIA, UNSPECIFIED 02/15/2020 CRYSTAL ADAM MD, Ot T38.0X5A ADVERSE EFFECT OF GLUCOCORT/SYNTH ANALOG 02/15/2020 CRYSTAL ADAM MD Ot U07. 1 COVID-19 02/15/2020 CRYSTAL ADAM MD Ot Z68. 41 BODY MASS INDEX (BMI) 40.0-44.9, ADULT 02/15/2020 CRYSTAL AADM MD Ot Z87. 39 PERSONAL HISTORY OF DISEASES OF THE MS S Procedures There is no data. Results Test [...] with reflex to culture CULTURE PENDING NRG Bacterial urine culture - 02/08/20 13:15 Bacterial urine culture NG NRG Complete blood count (CBC) with automate [...] platelet poor plasma (mass/volume) 1.19 ug/mL 0.00-0.49 Coronavirus SARS-CoV-2 SO 2018 - 0 13:20 Coronavirus Ab [Units/volume] in Serum Positive Negative Bacterial blood culture - 02/08/20 13:20 Bacterial blood culture NG NRG Blood lactic acid measurement (moles/vol ume) - 02/08/20 13:48 Blood lactic acid measurement (moles/volume) 1.95 mmol/L 0.50-2.00 Bacterial blood culture - 02/08/20 14:16 Bacterial blood culture NG NRG Methicillin resistant Staphylococcus aur eus (MRSA) screening culture - 02/08/20 18:58 Methicillin resistant Staphylococcus aureus (MRSA) scr eening culture NEG NRG Complete blood count (CBC) with automate d white blood cell (WBC) differential - 02/09/20 00:52 Blood leukocytes automated count (number/volume) 8.9 10*3/uL 4.3-11.0 Blood erythrocytes automated count (number/volume) 4.75 10*6/uL 4.35-5.85 Venous blood hemoglobin measurement (mass/volume) 13.5 g/dL 13.3-17.7 Blood hematocrit (volume fraction) 39 % 40-54 Automated erythrocyte mean corpuscular volume 83 [ foz_us] 80-99 Automated erythrocyte mean corpuscular h emoglobin (mass per erythrocyte) 28 pg 25-34 Automated erythrocyte mean corpuscular h emoglobin concentration measurement (mass/volume) 34 g/dL 32-36 Automated erythrocyte distribution width ratio 14. 6 % 10.0- 14.5 Automated blood platelet count (count/volume) 353 10*3/uL 130-400 Automated blood platelet mean volume measurement 9.2 [foz_us] 7.4-10.4 Automated blood neutrophils/100 leukocytes 90 % 42-75 Automated blood lymphocytes/100 leukocytes 6 % 12-44 Blood monocytes/100 leukocytes 4 % 0-12 Automated blood eosinophils/100 leukocytes 0 % 0-10 Automated blood basophils/100 leukocytes 0 % 0-10 Blood neutrophils automated count (number/volume) 8.0 10*3 1.8-7.8 Blood lymphocytes automated count (number/volume) 0.6 10*3 1.0-4.0 Blood monocytes automated count (number/volume) 0. 3 10*3 0.0-1.0 Automated eosinophil count 0.0 10*3/uL 0 .0-0.3 Automated blood basophil count (count/volume) 0.0 10*3/uL 0.0-0.1 Whole blood basic metabolic panel - 01/23 02/11 00:52 Serum or plasma sodium measurement (moles/volume) 138 mmol/L 135-145 Serum or plasma potassium measurement (moles/volume) 3.6 mmol/L 3.6-5.0 Serum or plasma chloride measurement (moles/volume) 103 mmol/L 98-107 Carbon dioxide 23 mmol/L 21-32 Serum or plasma anion gap determination (moles/volume) 12 mmol/L 5-14 Serum or plasma urea nitrogen measurement (mass/volume ) 15 mg/dL 7-18 Serum or plasma creatinine measurement (mass/volume) 0.75 mg/dL 0.60-1.30 Serum or plasma urea nitrogen/creatinine mass ratio 20 NRG Serum or plasma creatinine measurement w ith calculation of estimated glomerular filtration rate > NRG Serum or plasma glucose measurement (mass/volume) 159 mg/dL 70-105 Serum or plasma calcium measurement (mass/volume) 8.3 mg/dL 8.5-10.1 Serum or plasma phosphate measurement (m ass/volume) - 02/09/20 00:52 Serum or plasma phosphate measurement (mass/volume) 3.2 mg/dL 2.3-4.7 Magnesium - 02/09/20 00:52 Magnesium 1.8 mg/dL 1.6-2.4 PROCALCITONIN (PCT) - 02/09/20 00:52 PROCALCITONIN (PCT) 0.06 ng/mL <0.10 Comprehensive metabolic panel - 02/09/20 11:50 Serum or plasma sodium measurement (moles/volume) 139 mmol/L 135-145 Serum or plasma potassium measurement (moles/volume) 3.5 mmol/L 3.6-5.0 Serum or plasma chloride measurement (moles/volume) 104 mmol/L 98-107 Carbon dioxide 25 mmol/L 21-32 Serum or plasma anion gap determination (moles/volume) 10 mmol/L 5-14 Serum or plasma urea nitrogen measurement (mass/volume ) 17 mg/dL 7-18 Serum or plasma creatinine measurement (mass/volume) 0.77 mg/dL 0.60-1.30 Serum or plasma urea nitrogen/creatinine mass ratio 22 NRG Serum or plasma creatinine measurement w ith calculation of estimated glomerular filtration rate > NRG Serum or plasma glucose measurement (mass/volume) 220 mg/dL 70-105 Serum or plasma calcium measurement (mass/volume) 8.6 mg/dL 8.5-10.1 Serum or plasma total bilirubin measurement (mass/volu me) 0.3 mg/dL 0.1-1.0 Serum or plasma alkaline phosphatase juan surement (enzymatic activity/volume) 91 U/L 40-136 Serum or plasma aspartate aminotransfera se measurement (enzymatic activity/volume) 38 U/L 5-34 Serum or plasma alanine aminotransferase measurement (enzymatic activity/volume) 34 U/L 0-55 Serum or plasma protein measurement (mass/volume) 7.2 g/dL 6.4-8.2 Serum or plasma albumin measurement (mass/volume) 3.3 g/dL 3.2-4.5 CALCIUM CORRECTED 9.2 mg/dL 8.5-10.1 Liver function panel (serum or plasma al k phos, alb, total and direct bili, total protein, ALT, AST) - 02/09/20 11:50 Bilirubin direct 0.2 mg/dL 0.0-0.3 Serum or plasma indirect bilirubin measurement (mass/v olume) 0.1 mg/dL NRG Complete blood count (CBC) with automate d white blood cell (WBC) differential - 02/10/20 02:15 Blood leukocytes automated count (number/volume) 19.0 10*3/uL 4.3-11.0 Blood erythrocytes automated count (number/volume) 4.81 10*6/uL 4.35-5.85 Venous blood hemoglobin measurement (mass/volume) 13.7 g/dL 13.3-17.7 Blood hematocrit (volume fraction) 40 % 40-54 Automated erythrocyte mean corpuscular volume 83 [ foz_us] 80-99 Automated erythrocyte mean corpuscular h emoglobin (mass per erythrocyte) 29 pg 25-34 Automated erythrocyte mean corpuscular h emoglobin concentration measurement (mass/volume) 34 g/dL 32-36 Automated erythrocyte distribution width ratio 14. 6 % 10.0- 14.5 Automated blood platelet count (count/volume) 432 10*3/uL 130-400 Automated blood platelet mean volume measurement 9.5 [foz_us] 7.4-10.4 Automated blood neutrophils/100 leukocytes 89 % 42-75 Automated blood lymphocytes/100 leukocytes 5 % 12-44 Blood monocytes/100 leukocytes 5 % 0-12 Automated blood eosinophils/100 leukocytes 0 % 0-10 Automated blood basophils/100 leukocytes 0 % 0-10 Blood neutrophils automated count (number/volume) 17.0 10*3 1.8-7.8 Blood lymphocytes automated count (number/volume) 1.0 10*3 1.0-4.0 Blood monocytes automated count (number/volume) 1. 0 10*3 0.0-1.0 Automated eosinophil count 0.0 10*3/uL 0 .0-0.3 Automated blood basophil count (count/volume) 0.0 10*3/uL 0.0-0.1 Comprehensive metabolic panel - 02/10/20 02:15 Serum or plasma sodium measurement (moles/volume) 141 mmol/L 135-145 Serum or plasma potassium measurement (moles/volume) 4.2 mmol/L 3.6-5.0 Serum or plasma chloride measurement (moles/volume) 106 mmol/L 98-107 Carbon dioxide 24 mmol/L 21-32 Serum or plasma anion gap determination (moles/volume) 11 mmol/L 5-14 Serum or plasma urea nitrogen measurement (mass/volume ) 18 mg/dL 7-18 Serum or plasma creatinine measurement (mass/volume) 0.71 mg/dL 0.60-1.30 Serum or plasma urea nitrogen/creatinine mass ratio 25 NRG Serum or plasma creatinine measurement w ith calculation of estimated glomerular filtration rate > NRG Serum or plasma glucose measurement (mass/volume) 163 mg/dL 70-105 Serum or plasma calcium measurement (mass/volume) 8.6 mg/dL 8.5-10.1 Serum or plasma total bilirubin measurement (mass/volu me) 0.3 mg/dL 0.1-1.0 Serum or plasma alkaline phosphatase juan surement (enzymatic activity/volume) 95 U/L 40-136 Serum or plasma aspartate aminotransfera se measurement (enzymatic activity/volume) 37 U/L 5-34 Serum or plasma alanine aminotransferase measurement (enzymatic activity/volume) 35 U/L 0-55 Serum or plasma protein measurement (mass/volume) 7.2 g/dL 6.4-8.2 Serum or plasma albumin measurement (mass/volume) 3.3 g/dL 3.2-4.5 CALCIUM CORRECTED 9.2 mg/dL 8.5-10.1 Serum or plasma phosphate measurement (m ass/volume) - 02/10/20 02:15 Serum or plasma phosphate measurement (mass/volume) 3.7 mg/dL 2.3-4.7 Magnesium - 02/10/20 02:15 Magnesium 2.1 mg/dL 1.6-2.4 Fibrin D-dimer FEU measurement in platel et poor plasma (mass/volume) - 02/10/20 02:15 Fibrin D-dimer FEU measurement in platelet poor plasma (mass/volume) 0.96 ug/mL 0.00-0.49 Serum or plasma C reactive protein measu rement (mass/volume) - 02/10/20 02:15 Serum or plasma C reactive protein measurement (mass/v olume) 12.25 mg/dL 0.00-0.50 Manual absolute plasma cell count - 01/23 03/14 02:15 Blood monocytes/100 leukocytes 6 % NRG Manual blood segmented neutrophils/100 leukocytes 84 % NRG Blood band neutrophils/100 leukocytes 2 % NRG Manual blood lymphocytes/100 leukocytes 6 % NRG Manual blood basophils/100 leukocytes 1 % NRG Blood erythrocyte morphology finding identification NORMAL NRG Manual blood metamyelocytes/100 leukocytes 1 % NR Comprehensive metabolic panel - 02/11/20 02:43 Serum or plasma sodium measurement (moles/volume) 141 mmol/L 135-145 Serum or plasma potassium measurement (moles/volume) 4.1 mmol/L 3.6-5.0 Serum or plasma chloride measurement (moles/volume) 105 mmol/L 98-107 Carbon dioxide 23 mmol/L 21-32 Serum or plasma anion gap determination (moles/volume) 13 mmol/L 5-14 Serum or plasma urea nitrogen measurement (mass/volume ) 19 mg/dL 7-18 Serum or plasma creatinine measurement (mass/volume) 0.70 mg/dL 0.60-1.30 Serum or plasma urea nitrogen/creatinine mass ratio 27 NRG Serum or plasma creatinine measurement w ith calculation of estimated glomerular filtration rate > NRG Serum or plasma glucose measurement (mass/volume) 146 mg/dL 70-105 Serum or plasma calcium measurement (mass/volume) 8.3 mg/dL 8.5-10.1 Serum or plasma total bilirubin measurement (mass/volu me) 0.4 mg/dL 0.1-1.0 Serum or plasma alkaline phosphatase juan surement (enzymatic activity/volume) 94 U/L 40-136 Serum or plasma aspartate aminotransfera se measurement (enzymatic activity/volume) 52 U/L 5-34 Serum or plasma alanine aminotransferase measurement (enzymatic activity/volume) 62 U/L 0-55 Serum or plasma protein measurement (mass/volume) 6.8 g/dL 6.4-8.2 Serum or plasma albumin measurement (mass/volume) 3.2 g/dL 3.2-4.5 CALCIUM CORRECTED 8.9 mg/dL 8.5-10.1 Complete blood count (CBC) with automate d white blood cell (WBC) differential - 02/11/20 02:43 Blood leukocytes automated count (number/volume) 22.3 10*3/uL 4.3-11.0 Blood erythrocytes automated count (number/volume) 4.96 10*6/uL 4.35-5.85 Venous blood hemoglobin measurement (mass/volume) 13.9 g/dL 13.3-17.7 Blood hematocrit (volume fraction) 42 % 40-54 Automated erythrocyte mean corpuscular volume 84 [ foz_us] 80-99 Automated erythrocyte mean corpuscular h emoglobin (mass per erythrocyte) 28 pg 25-34 Automated erythrocyte mean corpuscular h emoglobin concentration measurement (mass/volume) 33 g/dL 32-36 Automated erythrocyte distribution width ratio 14. 9 % 10.0- 14.5 Automated blood platelet count (count/volume) 457 10*3/uL 130-400 Automated blood platelet mean volume measurement 9.4 [foz_us] 7.4-10.4 Automated blood neutrophils/100 leukocytes 87 % 42-75 Automated blood lymphocytes/100 leukocytes 5 % 12-44 Blood monocytes/100 leukocytes 8 % 0-12 Automated blood eosinophils/100 leukocytes 0 % 0-10 Automated blood basophils/100 leukocytes 0 % 0-10 Blood neutrophils automated count (number/volume) 19.3 10*3 1.8-7.8 Blood lymphocytes automated count (number/volume) 1.2 10*3 1.0-4.0 Blood monocytes automated count (number/volume) 1. 7 10*3 0.0-1.0 Automated eosinophil count 0.0 10*3/uL 0 .0-0.3 Automated blood basophil count (count/volume) 0.0 10*3/uL 0.0-0.1 Serum or plasma phosphate measurement (m ass/volume) - 02/11/20 02:43 Serum or plasma phosphate measurement (mass/volume) 3.7 mg/dL 2.3-4.7 Magnesium - 02/11/20 02:43 Magnesium 2.0 mg/dL 1.6-2.4 Complete blood count (CBC) with automate d white blood cell (WBC) differential - 02/12/20 03:55 Blood leukocytes automated count (number/volume) 20.8 10*3/uL 4.3-11.0 Blood erythrocytes automated count (number/volume) 5.00 10*6/uL 4.35-5.85 Venous blood hemoglobin measurement (mass/volume) 14.1 g/dL 13.3-17.7 Blood hematocrit (volume fraction) 42 % 40-54 Automated erythrocyte mean corpuscular volume 84 [ foz_us] 80-99 Automated erythrocyte mean corpuscular h emoglobin (mass per erythrocyte) 28 pg 25-34 Automated erythrocyte mean corpuscular h emoglobin concentration measurement (mass/volume) 34 g/dL 32-36 Automated erythrocyte distribution width ratio 14. 6 % 10.0- 14.5 Automated blood platelet count (count/volume) 463 10*3/uL 130-400 Automated blood platelet mean volume measurement 9.5 [foz_us] 7.4-10.4 Automated blood neutrophils/100 leukocytes 84 % 42-75 Automated blood lymphocytes/100 leukocytes 7 % 12-44 Blood monocytes/100 leukocytes 9 % 0-12 Automated blood eosinophils/100 leukocytes 0 % 0-10 Automated blood basophils/100 leukocytes 0 % 0-10 Blood neutrophils automated count (number/volume) 17.4 10*3 1.8-7.8 Blood lymphocytes automated count (number/volume) 1.4 10*3 1.0-4.0 Blood monocytes automated count (number/volume) 1. 9 10*3 0.0-1.0 Automated eosinophil count 0.0 10*3/uL 0 .0-0.3 Automated blood basophil count (count/volume) 0.1 10*3/uL 0.0-0.1 Fibrin D-dimer FEU measurement in platel et poor plasma (mass/volume) - 02/12/20 03:55 Fibrin D-dimer FEU measurement in platelet poor plasma (mass/volume) 1.43 ug/mL 0.00-0.49 Comprehensive metabolic panel - 02/12/20 03:55 Serum or plasma sodium measurement (moles/volume) 139 mmol/L 135-145 Serum or plasma potassium measurement (moles/volume) 4.1 mmol/L 3.6-5.0 Serum or plasma chloride measurement (moles/volume) 104 mmol/L 98-107 Carbon dioxide 22 mmol/L 21-32 Serum or plasma anion gap determination (moles/volume) 13 mmol/L 5-14 Serum or plasma urea nitrogen measurement (mass/volume ) 20 mg/dL 7-18 Serum or plasma creatinine measurement (mass/volume) 0.74 mg/dL 0.60-1.30 Serum or plasma urea nitrogen/creatinine mass ratio 27 NRG Serum or plasma creatinine measurement w ith calculation of estimated glomerular filtration rate > NRG Serum or plasma glucose measurement (mass/volume) 185 mg/dL 70-105 Serum or plasma calcium measurement (mass/volume) 8.5 mg/dL 8.5-10.1 Serum or plasma total bilirubin measurement (mass/volu me) 0.4 mg/dL 0.1-1.0 Serum or plasma alkaline phosphatase juan surement (enzymatic activity/volume) 94 U/L 40-136 Serum or plasma aspartate aminotransfera se measurement (enzymatic activity/volume) 54 U/L 5-34 Serum or plasma alanine aminotransferase measurement (enzymatic activity/volume) 85 U/L 0-55 Serum or plasma protein measurement (mass/volume) 6.9 g/dL 6.4-8.2 Serum or plasma albumin measurement (mass/volume) 3.3 g/dL 3.2-4.5 CALCIUM CORRECTED 9.1 mg/dL 8.5-10.1 Serum or plasma phosphate measurement (m ass/volume) - 02/12/20 03:55 Serum or plasma phosphate measurement (mass/volume) 4.0 mg/dL 2.3-4.7 Magnesium - 02/12/20 03:55 Magnesium 2.1 mg/dL 1.6-2.4 PROCALCITONIN (PCT) - 02/12/20 03:55 PROCALCITONIN (PCT) 0.03 ng/mL <0.10 Serum or plasma lithium measurement (mol es/volume) - 02/12/20 03:55 BNP PT 16.2 pg/mL <100.0 Serum or plasma C reactive protein measu rement (mass/volume) - 02/12/20 03:55 Serum or plasma C reactive protein measurement (mass/v olume) 2.56 mg/dL 0.00-0.50 Serum or plasma ferritin measurement (ma ss/volume) - 02/12/20 03:55 Serum or plasma ferritin measurement (mass/volume) 178.4 % 32.0-356.0 Comprehensive metabolic panel - 02/13/20 00:51 Serum or plasma sodium measurement (moles/volume) 138 mmol/L 135-145 Serum or plasma potassium measurement (moles/volume) 4.0 mmol/L 3.6-5.0 Serum or plasma chloride measurement (moles/volume) 103 mmol/L 98-107 Carbon dioxide 24 mmol/L 21-32 Serum or plasma anion gap determination (moles/volume) 11 mmol/L 5-14 Serum or plasma urea nitrogen measurement (mass/volume ) 20 mg/dL 7-18 Serum or plasma creatinine measurement (mass/volume) 0.80 mg/dL 0.60-1.30 Serum or plasma urea nitrogen/creatinine mass ratio 25 NRG Serum or plasma creatinine measurement w ith calculation of estimated glomerular filtration rate > NRG Serum or plasma glucose measurement (mass/volume) 188 mg/dL 70-105 Serum or plasma calcium measurement (mass/volume) 8.3 mg/dL 8.5-10.1 Serum or plasma total bilirubin measurement (mass/volu me) 0.3 mg/dL 0.1-1.0 Serum or plasma alkaline phosphatase juan surement (enzymatic activity/volume) 101 U/L 40-136 Serum or plasma aspartate aminotransfera se measurement (enzymatic activity/volume) 24 U/L 5-34 Serum or plasma alanine aminotransferase measurement (enzymatic activity/volume) 74 U/L 0-55 Serum or plasma protein measurement (mass/volume) 6.6 g/dL 6.4-8.2 Serum or plasma albumin measurement (mass/volume) 3.2 g/dL 3.2-4.5 CALCIUM CORRECTED 8.9 mg/dL 8.5-10.1 Serum or plasma phosphate measurement (m ass/volume) - 02/13/20 00:51 Serum or plasma phosphate measurement (mass/volume) 3.6 mg/dL 2.3-4.7 Magnesium - 02/13/20 00:51 Magnesium 2.1 mg/dL 1.6-2.4 Complete blood count (CBC) with automate d white blood cell (WBC) differential - 02/13/20 00:51 Blood leukocytes automated count (number/volume) 23.5 10*3/uL 4.3-11.0 Blood erythrocytes automated count (number/volume) 5.20 10*6/uL 4.35-5.85 Venous blood hemoglobin measurement (mass/volume) 14.7 g/dL 13.3-17.7 Blood hematocrit (volume fraction) 43 % 40-54 Automated erythrocyte mean corpuscular volume 83 [ foz_us] 80-99 Automated erythrocyte mean corpuscular h emoglobin (mass per erythrocyte) 28 pg 25-34 Automated erythrocyte mean corpuscular h emoglobin concentration measurement (mass/volume) 34 g/dL 32-36 Automated erythrocyte distribution width ratio 14. 7 % 10.0- 14.5 Automated blood platelet count (count/volume) 507 10*3/uL 130-400 Automated blood platelet mean volume measurement 9.3 [foz_us] 7.4-10.4 Automated blood neutrophils/100 leukocytes 84 % 42-75 Automated blood lymphocytes/100 leukocytes 7 % 12-44 Blood monocytes/100 leukocytes 8 % 0-12 Automated blood eosinophils/100 leukocytes 0 % 0-10 Automated blood basophils/100 leukocytes 0 % 0-10 Blood neutrophils automated count (number/volume) 19.7 10*3 1.8-7.8 Blood lymphocytes automated count (number/volume) 1.7 10*3 1.0-4.0 Blood monocytes automated count (number/volume) 2. 0 10*3 0.0-1.0 Automated eosinophil count 0.0 10*3/uL 0 .0-0.3 Automated blood basophil count (count/volume) 0.1 10*3/uL 0.0-0.1 Complete blood count (CBC) with automate d white blood cell (WBC) differential - 02/14/20 05:40 Blood leukocytes automated count (number/volume) 20.6 10*3/uL 4.3-11.0 Blood erythrocytes automated count (number/volume) 5.14 10*6/uL 4.35-5.85 Venous blood hemoglobin measurement (mass/volume) 14.4 g/dL 13.3-17.7 Blood hematocrit (volume fraction) 43 % 40-54 Automated erythrocyte mean corpuscular volume 84 [ foz_us] 80-99 Automated erythrocyte mean corpuscular h emoglobin (mass per erythrocyte) 28 pg 25-34 Automated erythrocyte mean corpuscular h emoglobin concentration measurement (mass/volume) 33 g/dL 32-36 Automated erythrocyte distribution width ratio 14. 8 % 10.0- 14.5 Automated blood platelet count (count/volume) 507 10*3/uL 130-400 Automated blood platelet mean volume measurement 9.5 [foz_us] 7.4-10.4 Automated blood neutrophils/100 leukocytes 80 % 42-75 Automated blood lymphocytes/100 leukocytes 11 % 12-44 Blood monocytes/100 leukocytes 8 % 0-12 Automated blood eosinophils/100 leukocytes 0 % 0-10 Automated blood basophils/100 leukocytes 0 % 0-10 Blood neutrophils automated count (number/volume) 16.5 10*3 1.8-7.8 Blood lymphocytes automated count (number/volume) 2.2 10*3 1.0-4.0 Blood monocytes automated count (number/volume) 1. 7 10*3 0.0-1.0 Automated eosinophil count 0.1 10*3/uL 0 .0-0.3 Automated blood basophil count (count/volume) 0.1 10*3/uL 0.0-0.1 Comprehensive metabolic panel - 02/14/20 05:40 Serum or plasma sodium measurement (moles/volume) 138 mmol/L 135-145 Serum or plasma potassium measurement (moles/volume) 4.2 mmol/L 3.6-5.0 Serum or plasma chloride measurement (moles/volume) 106 mmol/L 98-107 Carbon dioxide 23 mmol/L 21-32 Serum or plasma anion gap determination (moles/volume) 9 mmol/L 5-14 Serum or plasma urea nitrogen measurement (mass/volume ) 26 mg/dL 7-18 Serum or plasma creatinine measurement (mass/volume) 0.81 mg/dL 0.60-1.30 Serum or plasma urea nitrogen/creatinine mass ratio 32 NRG Serum or plasma creatinine measurement w ith calculation of estimated glomerular filtration rate > NRG Serum or plasma glucose measurement (mass/volume) 129 mg/dL 70-105 Serum or plasma calcium measurement (mass/volume) 8.3 mg/dL 8.5-10.1 Serum or plasma total bilirubin measurement (mass/volu me) 0.4 mg/dL 0.1-1.0 Serum or plasma alkaline phosphatase juan surement (enzymatic activity/volume) 92 U/L 40-136 Serum or plasma aspartate aminotransfera se measurement (enzymatic activity/volume) 20 U/L 5-34 Serum or plasma alanine aminotransferase measurement (enzymatic activity/volume) 58 U/L 0-55 Serum or plasma protein measurement (mass/volume) 6.4 g/dL 6.4-8.2 Serum or plasma albumin measurement (mass/volume) 3.1 g/dL 3.2-4.5 CALCIUM CORRECTED 9.0 mg/dL 8.5-10.1 Serum or plasma phosphate measurement (m ass/volume) - 02/14/20 05:40 Serum or plasma phosphate measurement (mass/volume) 3.5 mg/dL 2.3-4.7 Magnesium - 02/14/20 05:40 Magnesium 2.3 mg/dL 1.6-2.4 Complete blood count (CBC) with automate d white blood cell (WBC) differential - 02/15/20 05:13 Blood leukocytes automated count (number/volume) 22.0 10*3/uL 4.3-11.0 Blood erythrocytes automated count (number/volume) 5.49 10*6/uL 4.35-5.85 Venous blood hemoglobin measurement (mass/volume) 15.5 g/dL 13.3-17.7 Blood hematocrit (volume fraction) 46 % 40-54 Automated erythrocyte mean corpuscular volume 84 [ foz_us] 80-99 Automated erythrocyte mean corpuscular h emoglobin (mass per erythrocyte) 28 pg 25-34 Automated erythrocyte mean corpuscular h emoglobin concentration measurement (mass/volume) 34 g/dL 32-36 Automated erythrocyte distribution width ratio 15. 2 % 10.0- 14.5 Automated blood platelet count (count/volume) 571 10*3/uL 130-400 Automated blood platelet mean volume measurement 9.5 [foz_us] 7.4-10.4 Automated blood neutrophils/100 leukocytes 79 % 42-75 Automated blood lymphocytes/100 leukocytes 11 % 12-44 Blood monocytes/100 leukocytes 9 % 0-12 Automated blood eosinophils/100 leukocytes 1 % 0-10 Automated blood basophils/100 leukocytes 1 % 0-10 Blood neutrophils automated count (number/volume) 17.3 10*3 1.8-7.8 Blood lymphocytes automated count (number/volume) 2.5 10*3 1.0-4.0 Blood monocytes automated count (number/volume) 2. 0 10*3 0.0-1.0 Automated eosinophil count 0.1 10*3/uL 0 .0-0.3 Automated blood basophil count (count/volume) 0.1 10*3/uL 0.0-0.1 Comprehensive metabolic panel - 02/15/20 05:13 Serum or plasma sodium measurement (moles/volume) 140 mmol/L 135-145 Serum or plasma potassium measurement (moles/volume) 4.4 mmol/L 3.6-5.0 Serum or plasma chloride measurement (moles/volume) 106 mmol/L 98-107 Carbon dioxide 23 mmol/L 21-32 Serum or plasma anion gap determination (moles/volume) 11 mmol/L 5-14 Serum or plasma urea nitrogen measurement (mass/volume ) 32 mg/dL 7-18 Serum or plasma creatinine measurement (mass/volume) 0.91 mg/dL 0.60-1.30 Serum or plasma urea nitrogen/creatinine mass ratio 35 NRG Serum or plasma creatinine measurement w ith calculation of estimated glomerular filtration rate > NRG Serum or plasma glucose measurement (mass/volume) 123 mg/dL 70-105 Serum or plasma calcium measurement (mass/volume) 8.5 mg/dL 8.5-10.1 Serum or plasma total bilirubin measurement (mass/volu me) 0.4 mg/dL 0.1-1.0 Serum or plasma alkaline phosphatase juan surement (enzymatic activity/volume) 90 U/L 40-136 Serum or plasma aspartate aminotransfera se measurement (enzymatic activity/volume) 14 U/L 5-34 Serum or plasma alanine aminotransferase measurement (enzymatic activity/volume) 48 U/L 0-55 Serum or plasma protein measurement (mass/volume) 6.7 g/dL 6.4-8.2 Serum or plasma albumin measurement (mass/volume) 3.3 g/dL 3.2-4.5 CALCIUM CORRECTED 9.1 mg/dL 8.5-10.1 Encounters ACCT No. Visit Date/Time Discharge Status Pt. Type Provider Facility Loc./Unit Complaint [id number] 02/08/2020 14:01:00 020 15:23:00 DIS Outpatient KIA VILLALOBOS, CRYSTAL Vieira [facility] 4TH RESPIRATORY DISTRESS, C OVID 19 EVAL
[2020-03-10] MEDS ORDERED: methylPREDNISolone 125 MG (Solu-MEDROL) VIAL IV STA (23:55)
[2020-03-10] MEDS ORDERED: NS IV 1000 ML 1,000 ML IV ONE (23:55)
[2020-03-10] MEDS ORDERED: KETOROLAC 30 MG/ML VIAL IVP STA (23:55)
--- NOTE | 2020-03-11 00:02 | ED Lower Extremity ---
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) History of Present Illness Date Seen by Provider: Mar 10, 2020 Time Seen by Provider: 23:42 Initial Comments PT ARRIVES VIA POV FROM HOME C/O PAIN AND SWELLING TO RIGHT FOOT AND ANKLE FOR 3 DAYS STATES THAT THE WORST AREA OF PAIN IS ON THE TOP PART OF HIS FOOT AT HIS 5TH TOE NO INJURY STATES HE THINKS IT IS GOUT--STATES HE WAS DX WITH "URIC ACID" 4 YEARS AGO WHILE IN [place] AND HAD SAME SYMPTOMS NO FEVER NO RELIEF WITH 1 DOSE OF TYLENOL YESTERDAY AND ONE DOSE OF ADVIL TODAY AN HOUR AGO PT WAS ADMITTED 02/08/20-02/15/20 WITH BILATERAL PNEUMONIA AND RESPIRATORY FAILURE DUE TO COVID-19 / CORONAVIRUS STATES HE HAS BEEN CLEARED FROM QUARANTINE PT WORKS AT [employer] IN [place], [place]. PCP: EDWIN Allergies and Home Medications Allergies Coded Allergies: No Known Drug Allergies (Unverified , 02/08/20) Home Medications Aspirin/Acetaminophen/Caffeine 1 Each Tablet, 2 EACH PO Q6-8HR PRN for Headache, (Reported) Atorvastatin Calcium 10 Mg Tablet, 10 MG PO DAILY, (Reported) Colchicine 0.6 Mg Tablet, 0.6 MG PO UD 1.2 MG AT ONSET OF GOUT FLARE, THEN MAY TAKE 0.6 MG BID Prescribed by: ABDIRAHMAN RICH on 03/11/2053 Cyclobenzaprine HCl 10 Mg Tablet, 10 MG PO BID PRN for MUSCLE SPASMS, (Reported) Hydrocodone/Acetaminophen 1 Each Tablet, 1 EACH PO Q4-6 HOURS PRN for PAIN Prescribed by: ABDIRAHMAN RICH on 03/11/2053 Lisinopril/Hydrochlorothiazide 1 Each Tablet, 1 EACH PO DAILY, (Reported) Methylprednisolone 4 Mg Tab.ds.pk, 4 MG PO UD PER DOSE PACK INSTRUCTIONS Prescribed by: ABDIRAHMAN RICH on 03/11/2053 Patient Home Medication List Home Medication List Reviewed: Yes Review of Systems Constitutional: no symptoms reported; No chills, No diaphoresis, No fever EENTM: no symptoms reported Respiratory: no symptoms reported Cardiovascular: no symptoms reported Musculoskeletal: see HPI Skin: no symptoms reported Psychiatric/Neurological: No Symptoms Reported Past Bobwxum-Trtgdx-Jwxqzl Hx Past Med/Social Hx: Reviewed and Corrections made Patient Social History Alcohol Use: Past History (QUIT IN 2014) Recreational Drug Use: No Smoking Status: Never a Smoker 2nd Hand Smoke Exposure: No Recent Foreign Travel: No Contact w/Someone Who Travel: No Recent Hopitalizations: No Seasonal Allergies Seasonal Allergies: No Past Medical History Surgeries: Yes (BILATERAL KNEE SCOPES 2014) Orthopedic Respiratory: Yes (COVID-19/BILAT PNEUMONIA/RESP FAILURE 01/2020) Asthma Cardiac: Yes High Cholesterol, Hypertension Neurological: No Genitourinary: No Gastrointestinal: No Musculoskeletal: Yes Gout Endocrine: No HEENT: No Cancer: No Psychosocial: No Integumentary: No Blood Disorders: No Family Medical History No Pertinent Family Hx Physical Exam Vital Signs Vital Signs - First Documented 03/10/20 23:50 Temp 36.8 Pulse 83 Resp 22 B/P (MAP) 166/115 (132) O2 Delivery Room Air Capillary Refill : Height, Weight, BMI Height: '" Weight: lbs. oz. kg; 41.00 BMI Method: General Appearance: no apparent distress, obese, other (WALKS IN SLOWLY, USING 2 CRUTCHES, BUT USING THEM LIKE CANES AND NOT PROPER CRUTCH USE) Cardiovascular: regular rate, rhythm, no murmur Respiratory: normal breath sounds Ankles: right ankle other (DIFFUSE SWELLING AND MARKED TENDERNESS TO ENTIRE RIGHT ANKLE, LIMITED ROM DUE TO PAIN ) Feet: right foot other (DIFFUSE SWELLING AND MARKED TENDERNESS TO ENTIRE RIGHT FOOT. LIMITED ROM DUE TO PAIN. SENSORY/VASCULAR INTACT. FAINT ERYTHEMA TO FOOT AND ANKLE. ) Neurologic/Psychiatric: no motor/sensory deficits, alert, normal mood/affect, oriented x 3 Skin: normal color, warm/dry; No ecchymosis, No rash Procedures/Interventions Splinting and Joint Reduction : Elmer wrap: Yes Immobilizers: Step Light Walker s/m/lg Ordered: Crutches (CRUTCH TRAINING DONE) Progress/Results/Core Measures Results/Orders Lab Results Laboratory Tests Test 03/11/20 00:07 Range/Units White Blood Count 10.5 4.3-11.0 10^3/uL Red Blood Count 4.74 4.35-5.85 10^6/uL Hemoglobin 13.5 13.3-17.7 G/DL Hematocrit 40 40-54 % Mean Corpuscular Volume 84 80-99 FL Mean Corpuscular Hemoglobin 29 25-34 PG Mean Corpuscular Hemoglobin Concent 34 32-36 G/DL Red Cell Distribution Width 16.1 H 10.0-14.5 % Platelet Count 338 130-400 10^3/uL Mean Platelet Volume 9.2 7.4-10.4 FL Neutrophils (%) (Auto) 54 42-75 % Lymphocytes (%) (Auto) 20 12-44 % Monocytes (%) (Auto) 10 0-12 % Eosinophils (%) (Auto) 14 H 0-10 % Basophils (%) (Auto) 1 0-10 % Neutrophils # (Auto) 5.7 1.8-7.8 X 10^3 Lymphocytes # (Auto) 2.2 1.0-4.0 X 10^3 Monocytes # (Auto) 1.1 H 0.0-1.0 X 10^3 Eosinophils # (Auto) 1.5 H 0.0-0.3 10^3/uL Basophils # (Auto) 0.2 H 0.0-0.1 10^3/uL Erythrocyte Sedimentation Rate 25 H 0-15 MM/HR Sodium Level 138 135-145 MMOL/L Potassium Level 3.8 3.6-5.0 MMOL/L Chloride Level 105 98-107 MMOL/L Carbon Dioxide Level 22 21-32 MMOL/L Anion Gap 11 5-14 MMOL/L Blood Urea Nitrogen 12 7-18 MG/DL Creatinine 0.74 0.60-1.30 MG/DL Estimat Glomerular Filtration Rate > 60 BUN/Creatinine Ratio 16 Glucose Level 116 H 70-105 MG/DL Uric Acid 11.3 H 2.6-7.2 MG/DL Calcium Level 8.5 8.5-10.1 MG/DL Corrected Calcium 8.6 8.5-10.1 MG/DL Total Bilirubin 0.3 0.1-1.0 MG/DL Aspartate Amino Transf (AST/SGOT) 21 5-34 U/L Alanine Aminotransferase (ALT/SGPT) 29 0-55 U/L Alkaline Phosphatase 105 40-136 U/L Total Protein 7.5 6.4-8.2 GM/DL Albumin 3.9 3.2-4.5 GM/DL My Orders Orders - ABDIRAHMAN RICH DO Cbc With Automated Diff (03/10/20 23:41) Comprehensive Metabolic Panel (03/10/20 23:41) Erythrocyte Sedimentation Rate (03/10/20 23:41) Uric Acid (03/10/20 23:41) Ed Iv/Invasive Line Start (03/10/20 23:55) Ed Iv/Invasive Line Start (03/10/20 23:55) Ns Iv 1000 Ml (Sodium Chloride 0.9%) (03/10/20 23:55) Methylprednisolone Sod Succ (Solu-Medrol (03/10/20 23:55) Ketorolac Injection (Toradol Injection) (03/10/20 23:55) Foot, Right, 3 View (03/11/20 00:01) Ankle, Right, 3 Views (03/11/20 00:01) Rx-Hydrocodone/Apap 5-325 Mg (Rx-Vicodin (03/11/20 01:00) Rx-Hydrocodone/Apap 5-325 Mg (Rx-Vicodin (03/11/20 00:51) Elmer Bandage (03/11/20 00:54) Crutches (03/11/20 00:54) Steplite (03/11/20 00:54) Medications Given in ED Current Medications Medications Dose Ordered Sig/Len Route Start Time Stop Time Status Last Admin Dose Admin Sodium Chloride 1,000 ml @ 0 mls/hr Q0M ONCE IV 03/10/20 23:55 03/10/20 23:59 DC 03/11/20 00:11 999 MLS/HR Vital Signs/I&O 03/10/20 23:50 Temp 36.8 Pulse 83 Resp 22 B/P (MAP) 166/115 (132) O2 Delivery Room Air Progress Progress Note : Progress Note UNEVENTFUL ER STAY Diagnostic Imaging Comments XRAYS RIGHT FOOT AND ANKLE--FRACTURE BASE OF 5TH METATARSAL, SOFT TISSUE SWELLING, MILD HEEL SPUR--PENDING RADIOLOGIST REVIEW Reviewed: Reviewed by Me Departure Impression Primary Impression: Gout flare Additional Impression: Nondisplaced fracture of fifth right metatarsal bone Disposition: HOME, SELF-CARE Condition: Stable Departure-Patient Inst. Referrals: NO,LOCAL PHYSICIAN (PCP) Primary Care Physician RAMSES HERNANDEZ MD [facility] [place] Patient Instructions: Foot Avulsion Fracture (DC), Going Up and Down Curbs or Stairs With a Walker or Crutches, Gout (DC), How to Use Crutches, Low Purine D iet, Walking Boot Add. Discharge Instructions: ALTERNATE ICE AND HEAT AT 20 MINUTE INTERVALS--SOAK IN WARM EPSOM SALTS ELEVATE FOOT MUCH POSSIBLE ELMER WRAP AND WALKING BOOT AND CRUTCHES AT ALL TIMES FOLLOW UP WITH DR. HERNANDEZ THIS WEEK FOR FURTHER CARE OF FOOT FRACTURE--CALL IN THE MORNING TO SCHEDULE APPOINTMENT FOLLOW UP WITH [facility] THIS WEEK FOR FURTHER CARE OF GOUT All discharge instructions reviewed with patient and/or family. Voiced understanding. Scripts Colchicine (Colchicine) 0.6 Mg Tablet 0.6 MG PO UD, #6 TAB 1.2 MG AT ONSET OF GOUT FLARE, THEN MAY TAKE 0.6 MG BID Prov: ABDIRAHMAN RICH DO 03/11/20 Hydrocodone/Acetaminophen (Hydrocodone-Acetamin 5-325 mg) 1 Each Tablet 1 EACH PO Q4-6 HOURS PRN for PAIN, #20 TAB Prov: ABDIRAHMAN RICH DO 03/11/20 Methylprednisolone (Medrol) 4 Mg Tab.ds.pk 4 MG PO UD for 6 Days, #21 PKG PER DOSE PACK INSTRUCTIONS Prov: ABDIRAHMAN RICH DO 03/11/20 Work/School Note: Work Release Form Date Seen in the Emergency Department: Mar 11, 2020 Restrictions: Need Release from Doctor ABDIRAHMAN RICH DO Mar 11, 2020 00:02
[2020-03-11 00:17] LABS: BASOPHILS # (AUTO) 0.2 10^3/uL (0.0-0.1); BASOPHILS % (AUTO) 1 % (0-10); EOSINOPHILS # (AUTO) 1.5 10^3/uL (0.0-0.3); EOSINOPHILS % (AUTO) 14 % (0-10); HEMATOCRIT 40 % (40-54); HEMOGLOBIN 13.5 G/DL (13.3-17.7); LYMPHOCYTES # (AUTO) 2.2 X 10^3 (1.0-4.0); LYMPHOCYTES % (AUTO) 20 % (12-44); MEAN CORPUSCULAR HEMOGLOBIN 29 PG (25-34); MEAN CORPUSCULAR HGB CONC 34 G/DL (32-36); MEAN CORPUSCULAR VOLUME 84 FL (80-99); MEAN PLATELET VOLUME 9.2 FL (7.4-10.4); MONOCYTES # (AUTO) 1.1 X 10^3 (0.0-1.0); MONOCYTES % (AUTO) 10 % (0-12); NEUTROPHILS # (AUTO) 5.7 X 10^3 (1.8-7.8); NEUTROPHILS % (AUTO) 54 % (42-75); PLATELET COUNT 338 10^3/uL (130-400); RED CELL DISTRIBUTION WIDTH 16.1 % (10.0-14.5); WHITE BLOOD COUNT 10.5 10^3/uL (4.3-11.0)
[2020-03-11 00:26] LABS: ALBUMIN 3.9 GM/DL (3.2-4.5)
[2020-03-11 00:27] LABS: CHLORIDE 105 MMOL/L (98-107); POTASSIUM 3.8 MMOL/L (3.6-5.0); SODIUM 138 MMOL/L (135-145)
[2020-03-11 00:28] LABS: CALCIUM 8.5 MG/DL (8.5-10.1)
[2020-03-11 00:29] LABS: GLUCOSE 116 MG/DL (70-105); TOTAL PROTEIN 7.5 GM/DL (6.4-8.2)
[2020-03-11 00:30] LABS: CARBON DIOXIDE 22 MMOL/L (21-32)
[2020-03-11 00:31] LABS: BILIRUBIN,TOTAL 0.3 MG/DL (0.1-1.0)
[2020-03-11 00:32] LABS: ALKALINE PHOSPHATASE 105 U/L (40-136)
[2020-03-11 00:33] LABS: CREATININE SERUM 0.74 MG/DL (0.60-1.30); GFR ESTIMATED > 60
[2020-03-11 00:34] LABS: BUN/CREATININE RATIO 16
[2020-03-11 00:36] LABS: ALANINE AMINOTRANSFERASE 29 U/L (0-55); URIC ACID 11.3 MG/DL (2.6-7.2)
[2020-03-11 00:37] LABS: ERYTHROCYTE SEDIMENTATION RATE 25 MM/HR (0-15)
[2020-03-11] MEDS ORDERED: RX-HYDROCODONE/APAP 5/325 MG #4 TAB PK PO ONE (00:51)
[2020-03-11] MEDS ORDERED: METH4TAB PO (00:54)
[2020-03-11] MEDS ORDERED: COLC0.6T56 PO (00:54)
[2020-03-11] MEDS ORDERED: HYDR-3812 PO (00:54)
[2020-03-11] MEDS ORDERED: RX-HYDROCODONE/APAP 5/325 MG #4 TAB PK PO PRN (01:00)
[2020-03-11 01:06] VITALS: BP 159/91
--- NOTE | 2020-03-11 06:22 | Diagnostic Imaging Report ---
INDICATION: Right ankle injury COMPARISON: None FINDINGS: 3 views of the right ankle demonstrate intact ankle mortise. There is a fracture involving the proximal 5th metatarsal. There is no radiopaque foreign body. Calcaneal osteophytosis is seen. IMPRESSION: Intact ankle mortise Dictated by: Dictated on workstation # [id number]
--- NOTE | 2020-03-11 06:24 | Diagnostic Imaging Report ---
INDICATION: Right foot trauma, swelling. COMPARISON: None FINDINGS: 3 views of the right foot demonstrate subacute to chronic fracture involving the proximal 5th metatarsal. No additional osseous abnormalities seen. There is no bony erosion or significant degeneration. No foreign body seen. IMPRESSION: Proximal 5th metatarsal fracture. Dictated by: Dictated on workstation # [id number]
== END 2020-03-11 01:06 | disposition home or self-care (01) ==
LOC: EDUNIT# 23:25 → ER 23:27
DX: S92.354A Nondisplaced fracture of fifth metatarsal bone, right foot, initial encounter for closed fracture (principal); M10.9 Gout, unspecified; I10 Essential (primary) hypertension; J45.909 Unspecified asthma, uncomplicated; E78.00 Pure hypercholesterolemia, unspecified; Z79.82 Long term (current) use of aspirin; X58.XXXA Exposure to other specified factors, initial encounter
CPT/HCPCS: 36415; 73610; 73630; 80053; 84550; 85025; 85652